=== PATIENT | male | born 1970 | race Two or more races ===

== ENCOUNTER 2020-10-25 13:03 | Emergency (ER) | payer OTHER, SELFPAY ==
--- NOTE | ~2020-10-25 | XR_ITS ---
EXAMINATION: XR LUMBOSACRAL SPINE WITH OBLIQUES CLINICAL INFORMATION: Low back pain following lifting. COMPARISON: [facility] 12/30/2018, chest radiographs 07/03/2016. TECHNIQUE: Lumbar spine is imaged in 5 views: AP, lateral, lateral view coned to lumbosacral junction, and bilateral oblique. FINDINGS: The lumbar vertebral bodies are normal in height and there is normal lumbar lordosis. There is no lumbar vertebral compression, spondylolisthesis, destructive process, or lumbar disc narrowing. Some minor anterior vertebral spurring present at L3-L4. There are degenerative disc changes lower thoracic spine at T11-T12 and T12-L1. The SI joints and visualized sacrum are unremarkable. There is no right lumbar spondylolysis. The left L5 pars is not well visualized. There is moderate stool in the colon and some scattered gaseous distention colon. No bowel wall thickening. XR/XR lumbar spine 4V min IMPRESSION: 1. No lumbar vertebral compression, destructive process, or lumbar disc narrowing. 2. Question left L5 spondylolysis. No spondylolisthesis. 3. Degenerative disc changes T11-T12 and T12-L1.
[2020-10-25 13:08] VITALS: BP 140/86; PULSE 72; RESP 16; TEMP 35.9; O2SAT 100; BMI 34.8
--- NOTE | 2020-10-25 14:40 | ED.BACK ---
HPI - Back Pain/Injury General Chief Complaint: Back Pain/Injury Stated Complaint: BACK INJ PAIN Time Seen by Provider: 10/25/20 14:08 Source: patient Mode of arrival: ambulatory Limitations: no limitations History of Present Illness HPI Narrative: 50-year-old male with a past medical history of back pain, hypertension, hypercholesterolemia, GERD and asthma presenting to the ED with complaints of lower back pain since Wednesday worse today after lifting a couple plastic chairs at home. Reports he has had this pain in the past and is similar although little worse than prior. MD elicited complaint: back pain Pertinent past history: prior back pain Onset (ago): day(s) (Three days worse today) Timing: constant Severity: moderate Similar Symptoms Previously: Yes Quality: aching Location: lumbar spine Exacerbating factors: movement and walking Relieving factors: none Context: while lifting Associated symptoms: denies other symptoms Treatments prior to arrival: other (Patient reports he has tried multiple [id number] medication no symptomatic relief) Work related injury: No Related Data Previous Rx's Medication Instructions Recorded cyclobenzaprine 10 mg PO Q8H #10 tab 10/25/20 lidocaine HCl [Aspercreme 1 appl TOPICAL BID PRN #120 g 10/25/20 (lidocaine HCl)] naproxen 500 mg PO BID PRN #10 tab 10/25/20 oxycodone 5 mg PO BID PRN #10 tab 10/25/20 prednisone 40 mg PO DAILY 5 Days #10 tab 10/25/20 Allergies Allergy/AdvReac Type Severity Reaction Status Date / Time No Known Allergies Allergy Unverified 02/08/20 17:21 [No Known Allergies*] Review of Systems Review of Systems: Constitutional : No trauma, No Weight loss, No Fever, No Chills, ENT/Mouth : No Hearing loss, No Ear Pain, No Nasal Congestion, No Sinus Pain, No Hoarseness, No sore throat, No Rhinorrhea, No Swallowing Difficulty Cardiovascular : No Chest Pain, No SOB Respiratory : No Cough, No Dyspnea Gastrointestinal : No Nausea, No Vomiting, No Diarrhea, No abdominal Pain, No Hematochezia, No Melena Genitourinary : No Dysuria, No Urinary Frequency, No Hematuria, No Urinary or Bowel Incontinence/retention Musculoskeletal : + Back pain, No neck pain, No joint stiffness, No joint swelling Skin : No Skin Lesions, No rash or signs of infection Neuro : No Weakness, No radiation, No Numbness, No Paresthesias, No headache, no loss of bowel or bladder incontinence, no saddle anesthesia, Focal weakness, No radiation Denies history of IV drug usage. Yes all other systems are reviewed and are negative [facility], [facility] Past Medical History Attestation statement: The following information was validated with the patient. Medical History Hypercholesterolemia Hypertension Social History Social History Advance Directives: Yes Advance Directives Information Provided: No Advance Directives on File: No Physical Exam Vital Signs: Vital Signs: Last Vital Signs Temp 96.6 F L 10/25/20 13:08 Pulse 72 10/25/20 13:08 Resp 16 10/25/20 13:08 BP 140/86 H 10/25/20 13:08 Pulse Ox 100 10/25/20 13:08 Body Mass Index 34.8 vital signs have been reviewed as normal and appeared to be correct. Blood pressure normal. Heart rate normal. Respiration rate normal. Temperature normal. Oxygen saturation normal. Appearance: Alert. Oriented X3. No acute distress. Head: Normal external exam. Normocephalic. Atraumatic. No Barrow signs noted. No raccoon eyes noted Eyes: PERRLA. EOMI. Conjunctiva and sclera normal. Eyelids normal. ENT: EAC normal. TM's Normal. Pharynx normal. Uvula midline. Moist mucous membranes. No trismus noted. No drooling noted. No muffled voice noted. Neck: Normal inspection. Neck supple. FROM. No adenopathy. Thyroid Normal. No meningeal signs. No neck mass noted. CVS: Normal heart rate and rhythm. Heart sound normal. No murmurs noted. Pulses normal throughout. Respiratory: No respiratory distress. Painless inspiration. Breath sounds normal. No wheezes/rales/rhonchi noted. Chest nontender. No accessory muscle usage noted or decreased air movement noted. Abdomen: Soft and nontender. Bowel sounds normal in all 4 quadrants. No distention noted. No organomegaly noted. No visible injury noted. Back: No CVA tenderness. Full range of motion noted. No obvious deformities, or edema. Mild para-spinal muscular tenderness from lumbar region to coccyx. Full ROM in back and lower extremities. 5/5 strength hip extension/flexion, abduction, adduction. Mild Lumbar pain with hip flexion against resistance. Straight leg raise test negative on right; Straight leg raise test negative on left; Reflexes normal ankle and knee bilaterally; EHL motor strength normal bilaterally. No rashes/lesion/induration/fluctuance or signs infection noted. Skin: Skin warm and dry. Normal skin color. Normal skin turgor. No rashes/lesions/lacerations noted. Extremities: No lower extremity edema. Extremities exhibit normal range of motion. Extremities nontender. Neuro: Oriented X 3. No motor deficit. No sensory deficit. Reflexes normal. Patient has a normal steady gait. Course Course Course Narrative: Pt c likely muscular pain, but could be herniated disc. Neuro exam shows no deficits. Not c/w AAA/epidural abscess/dissection.No high risk Hx (Incont, fever, immunosupp, recent surgery/LP, coag, signif trauma, wt loss, puls mass, hx/o Ca, TB, or IVDU) to warrant MRI/CT today. Not c/w Pyelo/UTI/kidney stone/spinal fx. Not cauda equina syndrome. DC c meds and f/u. MDM - Back Pain/Injury Medical Records Attestation: I reviewed the patient's medical records. Imaging Data X-ray of lumbar spine: Attestation: I personally reviewed and interpreted this imaging study as follows: Radiologist's impression: FINDINGS: The lumbar vertebral bodies are normal in height and there is normal lumbar lordosis. There is no lumbar vertebral compression, spondylolisthesis, destructive process, or lumbar disc narrowing. Some minor anterior vertebral spurring present at L3-L4. There are degenerative disc changes lower thoracic spine at T11-T12 and T12-L1. The SI joints and visualized sacrum are unremarkable. There is no right lumbar spondylolysis. The left L5 pars is not well visualized. There is moderate stool in the colon and some scattered gaseous distention colon. No bowel wall thickening. XR/XR lumbar spine 4V min IMPRESSION: 1. No lumbar vertebral compression, destructive process, or lumbar disc narrowing. 2. Question left L5 spondylolysis. No spondylolisthesis. 3. Degenerative disc changes T11-T12 and T12-L1. Discharge Plan Discharge Clinical Impression: Spondylolysis of lumbar region, Degenerative disc disease, Constipation Patient Disposition: Home, Self-Care Instructions: Constipation (ED), Back Pain (ED), Degenerative Disc Disease (ED), Lower Back Exercises (ED) Prescriptions: New cyclobenzaprine 10 mg tablet 10 mg PO Q8H Qty: 10 RF: 0 prednisone 20 mg tablet 40 mg PO DAILY 5 Days Qty: 10 RF: 0 naproxen 500 mg tablet 500 mg PO BID PRN (Reason: pain) Qty: 10 RF: 0 oxycodone 5 mg tablet 5 mg PO BID PRN (Reason: pain) Qty: 10 RF: 0 lidocaine HCl [Aspercreme (lidocaine HCl)] 4 % cream 1 appl topical BID PRN (Reason: pain) Qty: 120 RF: 0 Referrals: Physician,Unknown [Primary Care Provider] - 2 days Stand Alone Forms: Work/School Release
[2020-10-25] MEDS: NaPROXEN 500 MG TABLET PO (15:25)
[2020-10-25] MEDS: oxyCODONE HCl Immed Release 5 MG TABLET PO (15:25)
[2020-10-25] MEDS: Cyclobenzaprine HCl 5 MG TABLET PO (15:25)
== END 2020-10-25 15:55 | disposition home or self-care (01) ==
PROVIDERS: Emergency Provider Emergency Medicine Emergency Medical Services
DX: K59.00 Constipation, unspecified (principal); M47.816 Spondylosis without myelopathy or radiculopathy, lumbar region; M51.36 Other intervertebral disc degeneration, lumbar region; I10 Essential (primary) hypertension; E78.00 Pure hypercholesterolemia, unspecified; K21.9 Gastro-esophageal reflux disease without esophagitis; J45.909 Unspecified asthma, uncomplicated
CPT/HCPCS: 72110; 99283

== ENCOUNTER 2020-12-04 10:55 | Outpatient (REF) | payer OTHER, SELFPAY ==
--- NOTE | ~2020-12-04 | XR_ITS ---
EXAMINATION: XR KNEE, LEFT CLINICAL INFORMATION: Left knee pain. COMPARISON: None TECHNIQUE: Four views of the left knee. FINDINGS: Bones and soft tissues are normal. No fracture or joint effusion. Alignment is anatomic. Joint spaces are well maintained. No abnormal soft tissue calcification. XR/XR knee LT 4V IMPRESSION: Unremarkable examination.
== END 2020-12-04 10:56 | disposition home or self-care (01) ==
LOC: HO.XRAY 10:55
PROVIDERS: PCP Registered Nurse Community Health; Visit Provider Registered Nurse Community Health
DX: M25.562 Pain in left knee (principal)
CPT/HCPCS: 73564

== ENCOUNTER 2021-02-18 07:34 | Emergency (ER) | payer OTHER, SELFPAY ==
--- NOTE | ~2021-02-18 | CT_ITS ---
EXAMINATION: CT LEFT LOWER LEG CLINICAL INFORMATION: Pain, tenderness, gastrocnemius pain, concern for tear. COMPARISON: None TECHNIQUE: Axial imaging without contrast. Sagittal and coronal reconstructions. FINDINGS: No evidence of acute tibia or fibular fracture. Articulation at the knee and tibiotalar joint is maintained. Subchondral lucencies in the inferior aspect of the central patella and medial patellar facet, probably degenerative. Mild heterogeneity and intermediate attenuation in the medial aspect of the soleus muscle, could be related in part to streak artifact from the adjacent bone, with underlying muscle abnormality such as interstitial tearing not excluded. No measurable tear is otherwise seen in the medial and lateral gastrocnemius muscles. No gross tear is otherwise identified in the visualized musculature. No significant Vargas's cyst. Limited evaluation the tendons. The Achilles tendon is grossly intact. Remainder of the technologist and tendons appear unremarkable. CT/CT lower leg LT wo con IMPRESSION: 1. Limited evaluation of the muscles on CT. Slight heterogeneity and intermediate attenuation in the medial aspect of the soleus muscle, which could be related to artifact from the adjacent bone versus underlying muscle abnormality such as interstitial tearing. No measurable tear is otherwise identified in the visualized musculature. Further evaluation with MRI can be obtained as clinically warranted. 2. No acute osseous abnormality seen. 3. Degenerative/arthritic changes in the patella, partially imaged/incompletely evaluated,as detailed above.
[2021-02-18 07:53] VITALS: BP 131/90; PULSE 81; RESP 16; TEMP 36.6; O2SAT 96; BMI 34.8
--- NOTE | 2021-02-18 07:58 | ED_ITS ---
HPI - Extremity Injury (Lower) General Chief Complaint: Extremity Injury, Lower Stated Complaint: lt lower leg injury Time Seen by Provider: 02/18/21 07:57 Source: patient and family Mode of arrival: ambulatory Limitations: no limitations History of Present Illness HPI Narrative: 50 y/o male presents to the ER with left lower leg injury that started this morning after he fell. He reports when he was walking down the stairs this morning he missed the last 2 steps. He felt a snap and had immediate pain is his left calf. He was able to partially bear weight but had severe pain. He reports pain with plantar flexsion and dorsiflexion and limited ROM of his ankle due to the pain. MD complaint: leg injury Onset (ago): hour(s) Type of Injury: unknown Place: home Severity: severe Severity scale (1-10): 8 Relieving factors: immobilization and rest Exacerbating factors: weight bearing, movement and palpation Associated symptoms: snap/pop sensation and able to partially bear weight Other symptoms: none Treatments prior to arrival: cold therapy Related Data Previous Rx's Medication Instructions Recorded cyclobenzaprine 10 mg tablet 10 mg PO Q8H #10 tab 10/25/20 lidocaine HCl 4 % topical cream 1 appl TOPICAL BID PRN #120 g 10/25/20 (Aspercreme (lidocaine HCl)) naproxen 500 mg tablet 500 mg PO BID PRN #10 tab 10/25/20 oxycodone 5 mg tablet 5 mg PO BID PRN #10 tab 10/25/20 prednisone 20 mg tablet 40 mg PO DAILY 5 Days #10 tab 10/25/20 oxycodone 5 mg tablet 5 mg PO Q8H PRN #7 tab 02/18/21 Allergies Allergy/AdvReac Type Severity Reaction Status Date / Time No Known Allergies Allergy Unverified 02/08/20 17:21 [No Known Allergies*] Review of Systems Review of Systems: Constitutional: No Fever, No Chills Cardiovascular: No Chest Pain, No SOB Respiratory: No Cough, No Sputum, No Wheezing, No dyspnea Gastrointestinal: No Nausea, No Vomiting, No abdominal Pain Musculoskeletal: No joint pain, + Myalgias Skin: No Skin Lesions, No rash Neuro: No Weakness, No Numbness, No Dizziness, No Headache Psych: No Anxiety/Panic, No Depression Heme/Lymph: No Bruising PMFSH Past Medical History Medical History Hypercholesterolemia Hypertension Social History Social History Alcohol intake: former Patient Tobacco Use Status: Never used Tobacco Use of substances other than those prescribed or required for medical reasons: No Advance Directives: No Advance Directives Information Provided: No Physical Exam Vital Signs: Vital Signs: Last Vital Signs Temp 97.9 F 02/18/21 07:53 Pulse 69 02/18/21 10:15 Resp 14 02/18/21 10:15 BP 140/75 H 02/18/21 10:15 Pulse Ox 97 02/18/21 10:15 Body Mass Index 34.8 Appearance: Alert. Oriented X3. No acute distress. HEENT: normal inspection CVS: Normal heart rate and rhythm. Pulses normal. Respiratory: No respiratory distress. Skin: Skin warm and dry. Normal skin color. Normal skin turgor. No rashes. Extremities: normal inspection of the left leg. significant soft tissue tenderness of the gastrocnemius, no skin changes, no palpable pain, negative saldana test. normal inspection of the left ankle. weak plantar and dorsiflexion of the left foot. NV intact distally. normal left knee inspection and ROM, nontender Neuro: Oriented X 3. No motor deficit. No sensory deficit. unable to assess gait due to pain Course Course Course Narrative: 50 yo male presenting with left calf pain s/p fall. Exam is concerning for possible gastrocnemius tear. Achilles seems to be intact. Will get CT scan to assess the soft tissues. MRI preferred test but not emergently warranted at this time. Reevaluation(s) Reevaluation #1: CT scan showed possible interstial tearing of the medil soleus muscle vs artifact. TT Ortho who recommended walking boot and outpatient follow up. Stable for d/c home with pain control and Ortho follow up. Results and management discussed with patient and son at the bedside. Consultations Consultation #1: ORTHO- Jennifer Marcus PA-C Discharge Plan Discharge Clinical Impression: Pain of left calf Patient Disposition: Home, Self-Care Instructions: Leg Pain (ED) Additional Instructions: Your CT scan today showed a possible tear in the muscle of your left lower leg. Recommend following up with Orthopedics for further evaluation and management. Wear the walking boot and use crutches as needed. Take the prescribed medication as needed for severe pain - do not drive after taking this medication. Rest and elevate your leg whenever possible. If you develop new or worsening symptoms call 911 or come back to the ER for further evaluation. Boss tomograf?a computarizada de hoy mostr? un posible desgarro en el m?sculo de la parte inferior de la pierna izquierda. Recomendar seguimiento con ortopedia para mayor evaluaci?n y manejo. Use la bota para caminar y use muletas seg?n sea necesario. [place] el medicamento recetado seg?n sea necesario para el dolor intenso; no conduzca despu?s de marie hola medicamento. Descanse y eleve la pierna siempre que sea posible. Si presenta s?ntomas nuevos o que empeoran, llame al 911 o regrese a la kevin de emergencias para jennifer evaluaci?n adicional. Prescriptions: New oxycodone 5 mg tablet 5 mg PO Q8H PRN (Reason: pain) Qty: 7 RF: 0 No Action cyclobenzaprine 10 mg tablet 10 mg PO Q8H Qty: 10 RF: 0 prednisone 20 mg tablet 40 mg PO DAILY 5 Days Qty: 10 RF: 0 naproxen 500 mg tablet 500 mg PO BID PRN (Reason: pain) Qty: 10 RF: 0 oxycodone 5 mg tablet 5 mg PO BID PRN (Reason: pain) Qty: 10 RF: 0 lidocaine HCl [Aspercreme (lidocaine HCl)] 4 % cream 1 appl topical BID PRN (Reason: pain) Qty: 120 RF: 0 Referrals: Jennifer Clay PA-C [Physician Manager Of [employer]] - 1 day (concern for gastroc tear) Stand Alone Forms: Work/School Release Interventions: ED Discharge Assessment Last Done: 02/18/21 10:11 Discharge Date/Time: 02/18/21 10:16 Print Language: Bulgarian
[2021-02-18] MEDS: oxyCODONE HCl Immed Release 5 MG TABLET PO (08:11)
[2021-02-18 10:15] VITALS: BP 140/75; PULSE 69; RESP 14; O2SAT 97
== END 2021-02-18 10:16 | disposition home or self-care (01) ==
PROVIDERS: Emergency Provider Emergency Medicine
DX: S89.92XA Unspecified injury of left lower leg, initial encounter (principal); M79.662 Pain in left lower leg; W10.9XXA Fall (on) (from) unspecified stairs and steps, initial encounter; Y93.9 Activity, unspecified; Y92.9 Unspecified place or not applicable; Y99.9 Unspecified external cause status; Z79.899 Other long term (current) drug therapy
CPT/HCPCS: 73700; 99284; 99285

== ENCOUNTER 2021-07-04 18:02 | Emergency (ER) | payer OTHER, SELFPAY ==
[2021-07-04 18:05] VITALS: BP 137/82; PULSE 105; TEMP 36.5; O2SAT 97; BMI 34.8
[2021-07-04 18:22] LABS: MANUAL DIFF FLAG NO
[2021-07-04 18:27] LABS: Basophils Percent Auto 0.4 % (0-2); Eosinophils Absolute Auto 0.1 X10*3/uL (0.0-0.4); Eosinophils Percent Auto 0.9 % (0-4); Hematocrit 40.2 % (42.0-52.0); Hemoglobin 13.8 g/dl (14.0-18.0); Imm Gran Abs Auto 0.01 X10*3/uL (0.00-0.03); Imm Gran Pct Auto 0.2 % (0.0-0.4); Lymphocytes Absolute Auto 1.3 X10*3/uL (1.2-4.9); Lymphocytes Percent Auto 23.3 % (20-40); Mean Corpuscular HGB Conc 34.3 g/dl (31.0-36.0); Mean Corpuscular Hemoglobin 30.5 pg (27.0-33.0); Mean Corpuscular Volume 88.9 fL (80.0-98.0); Monocytes Absolute Auto 0.5 X10*3/uL (0.1-1.2); Monocytes Percent Auto 8.7 % (2-11); Neutrophils Absolute Auto 3.8 x10*3/uL (2.0-8.3); Neutrophils Percent Auto 66.5 % (45-73); Platelet Count 252 X10*3/uL (160-400); Red Blood Count 4.52 X10*6/uL (4.60-5.80); Red Cell Distribution Width 12.3 % (11.0-16.0); White Blood Count 5.6 X10*3/uL (4.8-10.8)
--- NOTE | 2021-07-04 18:41 | PC.NURSE ---
Brother Gary Sheppard- [phone], Sister Sylwia West- [phone]
[2021-07-04 18:45] LABS: Alanine Aminotransferase 17 U/L (0-40); Albumin Level 4.2 g/dL (3.5-5.0); Alkaline Phosphatase 103 U/L (39-117); Anion Gap 12 (12-20); Aspartate Amino Transferase 22 U/L (5-37); Bilirubin Direct 0.4 mg/dL (0.0-0.5); Bilirubin Total 0.9 mg/dL (0.0-1.0); Blood Urea Nitrogen 18 mg/dL (9-16); Calcium 9.3 mg/dL (8.4-10.2); Carbon Dioxide 28 mmol/L (22-29); Chloride 102 mmol/L (96-108); Creatinine Clr Calc Pharmacy 108.6; Estimated Glomerular Filt Rate > 60; Glucose Random 131 mg/dL (60-115); Lipase 27 U/L (8-78); Potassium 4.1 mmol/L (3.3-5.1); Sodium 138 mmol/L (135-145); Total Protein 8.4 g/dL (6.5-8.0)
[2021-07-04 18:48] LABS: Appearance Urine CLEAR; Color Urine YELLOW; Glucose Urine UA NEG (NEG); Leukocyte Esterase Urine NEG (NEG); Nitrite Urine NEG (NEG); Specific Gravity - Urine >= 1.030 (1.005-1.025); Urine Blood NEG (NEG); Urine Ketones NEG (NEG); Urine Protein TRACE MG/DL (NEG-TRACE)
== END 2021-07-04 22:22 | disposition left against medical advice (07) ==
PROVIDERS: Emergency Provider Emergency Medicine
DX: R10.9 Unspecified abdominal pain (principal)
CPT/HCPCS: 36415; 80053; 81003; 82248; 83690; 85025; 99283

== ENCOUNTER 2021-07-05 08:31 | Emergency (ER) | payer OTHER, SELFPAY ==
--- NOTE | ~2021-07-05 | CT_ITS ---
EXAMINATION: CT ABDOMEN AND PELVIS WITH CONTRAST CLINICAL INFORMATION: Mid abdominal pain for 6 days. COMPARISON: CT scan of the abdomen and pelvis dated 08/07/2015. TECHNIQUE: Multidetector CT volumetric acquisition of the abdomen and pelvis was performed after the administration of 85 mL of intravenous Omnipaque 350. The data set was reformatted in the sagittal and coronal planes and reviewed on an independent workstation. This CT examination was performed using dose optimization techniques as appropriate, variously including the following: *Automated exposure control *Adjustment of mA and/or kV according to patient size (this includes techniques or standardized protocols for targeted exams where dose is matched to indication/reason for exam; i.e. extremities or head) *Use of iterative reconstruction technique DLP: 802 mGy-cm. FINDINGS: LOWER CHEST: Mild scattered atelectasis in the lung bases bilaterally. LIVER, GALLBLADDER, BILIARY TREE: Liver normal size and attenuation. No focal cystic or solid mass or intra-or extrahepatic ductal dilatation. Hepatic and portal veins patent. Gallbladder partially distended and within normal limits. PANCREAS: Normal. No ductal dilatation, mass, or surrounding stranding. SPLEEN: Normal size and appearance. Splenic vein patent. ADRENAL GLANDS AND KIDNEYS: Adrenal glands normal. Kidneys bilaterally symmetric in size and function. No focal mass, hydronephrosis, nephrolithiasis or perinephric stranding. URETERS AND BLADDER: Ureters decompressed and within normal limits. Bladder partially distended and within normal limits. PELVIC ORGANS: Unremarkable. GASTROINTESTINAL TRACT: There is abnormal diffuse circumferential bowel wall edema and mucosal hyperenhancement seen involving a long segment of the mid and distal and terminal ileum down to the ileocecal valve with mild surrounding mesenteric edema and stranding. Findings are new compared to the prior study and is suspicious for ileitis. The remainder of the small bowel loops are decompressed and unremarkable. No evidence of pneumatosis intestinalis or bowel obstruction/perforation is seen. There are several small right lower quadrant mesenteric lymph nodes, measuring up to 0.9 cm in short axis, likely reactive. Colon is decompressed and unremarkable. Appendix in right lower quadrant normal. ABDOMINAL WALL: There is a tiny fat-containing umbilical hernia. LYMPHOVASCULAR STRUCTURES: Abdominal aorta normal in caliber. Aorta and all mesenteric vessels are patent and enhance normally.. No significant atherosclerotic vascular calcifications. No periaortic collections. No abdominal or pelvic adenopathy or free fluid collection. BONES: Moderate vertebral spondylosis seen in the lower thoracic spine. Mild vertebral spurring seen throughout the lumbar spine. CT/CT abdomen pelvis w con IMPRESSION: Long segment of mid and distal ileitis is seen. This may be due to infectious causes or inflammatory causes such as Crohn's disease. Close clinical correlation is requested.
[2021-07-05 08:40] VITALS: BP 143/107; PULSE 116; RESP 19; TEMP 36.6; O2SAT 98; BMI 34.2
--- NOTE | 2021-07-05 10:23 | ED_ITS ---
HPI - Abdominal Pain General Chief Complaint: Abdominal Pain Stated Complaint: abd pain Time Seen by Provider: 07/05/21 10:23 Source: patient Mode of arrival: ambulatory Limitations: no limitations History of Present Illness HPI narrative: Patient is a 50 year old male presenting to the emergency department today with abdominal pain. Patient states that for the last few days, he has had a burning type pain throughout his entire abdomen. Paitent states that he has a history of acid reflux but he is not taking any medication for it. Patient states that he tried to be seen yesterday but waited too long and left. Patient denies any dizziness, lightheadedness, nausea, vomiting, fever, chills, blurry vision, double vision, loss of vision, chest pain, difficulty breathing, shortness of breath, back pain, night sweats, pain with urination, increased urinary frequency, increased urinary urgency, blood in his urine or stool, syncope or a near syncopal episode, recent trauma or falls, bowel incontinence, bladder incontinence, bowel retention, bladder retention, or any other complaints at this time. MD elicited complaint: abdominal pain Pertinent past history: none Onset (ago): day(s) Pain Consistency: intermittent Location: diffuse Severity: mild Quality: dull Radiation: none Exacerbating factors: nothing Relieving factors: nothing Associated symptoms: denies other symptoms Related Data Previous Rx's Medication Instructions Recorded cyclobenzaprine 10 mg tablet 10 mg PO Q8H #10 tab 10/25/20 lidocaine HCl 4 % topical cream 1 appl TOPICAL BID PRN #120 g 10/25/20 (Aspercreme (lidocaine HCl)) naproxen 500 mg tablet 500 mg PO BID PRN #10 tab 10/25/20 oxycodone 5 mg tablet 5 mg PO BID PRN #10 tab 10/25/20 prednisone 20 mg tablet 40 mg PO DAILY 5 Days #10 tab 10/25/20 oxycodone 5 mg tablet 5 mg PO Q8H PRN #7 tab 02/18/21 levofloxacin 750 mg tablet 750 mg PO DAILY 7 Days #7 tab 07/05/21 metronidazole 500 mg tablet 500 mg PO Q8H 7 Days #21 tab 07/05/21 Allergies Allergy/AdvReac Type Severity Reaction Status Date / Time No Known Allergies Allergy Unverified 02/08/20 17:21 [No Known Allergies*] Review of Systems Constitutional: Reports no additional constitutional complaints, Denies chills, Denies fever(s) and Denies night sweats Eyes: Reports no additional eye complaints, Denies blurry vision, Denies change in vision, Denies diplopia, Denies eye discharge, Denies loss of vision and Denies eye pain Denies dizziness Cardiovascular: Reports no additional cardiovascular complaints, Denies chest pain, Denies lightheadedness, Denies Loss of Consciousness and Denies dyspnea Respiratory: Reports no additional respiratory complaints and Denies dyspnea Gastrointestinal: Reports no additional gastrointestinal complaints, Reports abdominal pain, Denies melena, Denies hematochezia, Denies change in bowel habits and Denies change in stool character Genitourinary: Reports no additional male genitourinary complaints, Denies hematuria, Denies oliguria, Denies difficulty urinating, Denies dysuria, Denies urinary frequency, Denies urinary hesitancy, Denies urinary incontinence and Denies urinary urgency Musculoskeletal: Reports no additional musculoskeletal complaints, Denies numbness and Denies tingling Denies dizziness, Denies loss of vision, Denies numbness and Denies tingling Psychiatric: Reports no additional psychiatric complaints Endocrine: Reports no additional endocrine complaints Hematologic/Lymphatic: Reports no additional hematologic/lymphatic complaints Allergic/Immunologic: Reports no additional allergic/immunologic complaints Physical Exam Vital Signs: Vital Signs: Last Vital Signs Temp 98.1 F 07/05/21 15:24 Pulse 87 07/05/21 15:24 Resp 18 07/05/21 15:24 BP 135/86 07/05/21 15:24 Pulse Ox 98 07/05/21 15:24 BMI result Body Mass Index 34.2 Const: General: cooperative, no acute distress, alert and awake Nutritional Appearance: well nourished Orientation/consciousness: patient oriented x3 Limitations: no limitations HENMT: Head: Yes normal to inspection and Yes atraumatic Ears: hearing grossly normal bilaterally and external ears normal General nose exam: Normal external nose present, no nasal discharge noted and no epistaxis Face and sinus: Yes normal facial exam, No abrasion and No laceration Mouth: Normal oral and palatal mucosa present, no drooling and no muffled voice Eyes: General: appearance normal, both eyes and all related structures Periorbital: periorbital findings normal Eyelids: Yes eyelids normal Conjunctivae: conjunctivae normal Pupils: Equal, round and reactive pupils present EOM: EOMs intact bilaterally Neck: Neck: Yes normal visual inspection, Yes full ROM and Yes no l ymphadenopathy Chest: Chest palpation & inspection: normal inspection of the chest Resp: Effort & Inspection: normal respiratory effort and able to speak in complete sentences GI: Inspection: Yes normal to inspection Palpation (GI): Soft to palpation and Tenderness to palpation present (GI) other (diffuse abdominal pain); Negative for Guillermo's sign negative and with no rebound tenderness Neuro: General: patient oriented x3 and moves all extremities Cranial nerves: Yes Equal, round and reactive pupils present Cognition (Neuro): normal cognition Motor exam (neuro): 5/5 motor strength present throughout Sensory Exam: Normal double simultaneous stimulation for sensation Coordination: [id number] test normal Extrem: General: Yes normal to inspection, Yes full ROM and Yes capillary refill normal Psych: Appearance: grossly normal Mental Status: mental status grossly normal Affect: normal affect Attitude: cooperative Thought process: Normal thought process present Thought content: Normal thought content present Insight: Good insight present (Psych) MDM - Abdominal Pain MDM Narrative Medical decision making narrative: Patient is a 50 year old male presenting to the emergency department today with abdominal pain. Patient's physical exam showed diffuse abdominal pain but was otherwise unremarkable. Patient's blood work was unremarkable. Patient's CT of the abdomen and pelvis showed an Ileitis. I explained my physical exam findings as well as all test results to the patient. I answered all questions asked by the patient. I stressed the importance of the patient taking his antibiotic as prescribed. I stressed the importance of the patient following up with his primary care provider and a GI Specialist. I stressed the importance of the patient returning to the emergency department immediately if his symptoms were to worsen or if he were to develop any dizziness, shortness of breath, difficulty breathing, chest pain, blurry vision, loss of vision, nausea, vomiting, abdominal pain, fever, chills, back pain, or any other complaints. Patient verbalized agreement and understanding with this treatment plan and discharge. Differential Diagnosis Differential diagnosis: Likely abdominal pain, acute appendicitis, diverticulitis and gastroenteritis Medical Records Attestation: I reviewed the patient's medical records. Lab Data Attestation: I reviewed the patient's lab results. Result diagrams: 07/05/21 11:20 07/05/21 11:20 Labs: Lab Results 07/05/21 07/05/21 Range/Units 11:20 11:20 WBC 5.1 (4.8-10.8) X10*3/uL RBC 4.51 L (4.60-5.80) X10*6/uL Hgb 13.7 L (14.0-18.0) g/dl Hct 40.2 L (42.0-52.0) % MCV 89.1 (80.0-98.0) fL MCH 30.4 (27.0-33.0) pg MCHC 34.1 (31.0-36.0) g/dl RDW 12.1 (11.0-16.0) % Plt Count 235 (160-400) X10*3/uL MPV 9.9 (9.4-12.4) fL Immature Gran % (Auto) 0.4 (0.0-0.4) % Neut % (Auto) 66.2 (45-73) % Lymph % (Auto) 22.1 (20-40) % [place] % (Auto) 10.1 (2-11) % Eos % (Auto) 0.8 (0-4) % Baso % (Auto) 0.4 (0-2) % Lymph # (Auto) 1.1 L (1.2-4.9) X10*3/uL [place] # (Auto) 0.5 (0.1-1.2) X10*3/uL Eos # (Auto) 0.0 (0.0-0.4) X10*3/uL Baso # (Auto) 0.0 (0.0-0.2) X10*3/uL Abs Immat Gran (auto) 0.02 (0.00-0.03) X10*3/uL Absolute Neuts (auto) 3.4 (2.0-8.3) x10*3/uL Absolute Nucleated RBC 0.000 (0.0-0.012) X10*3/uL Nucleated RBC % (auto) 0.0 (0.0-0.2) /100WBC Sodium 137 (135-145) mmol/L Potassium 3.7 (3.3-5.1) mmol/L Chloride 102 (96-108) mmol/L Carbon Dioxide 28 (22-29) mmol/L Anion Gap 11 L (12-20) BUN 15 (9-16) mg/dL Creatinine 0.84 (0.5-1.4) mg/dL Estim Creat Clear Calc 131.8 Estimated GFR > 60 Fasting Glucose 111 H (60-99) mg/dL Calcium 9.1 (8.4-10.2) mg/dL Magnesium 2.1 (1.6-2.6) mg/dL Total Bilirubin 1.3 H (0.0-1.0) mg/dL AST 21 (5-37) U/L ALT 19 (0-40) U/L Alkaline Phosphatase 94 (39-117) U/L Total Protein 8.1 H (6.5-8.0) g/dL Albumin 4.0 (3.5-5.0) g/dL Lipase 17 (8-78) U/L Imaging Data CT scan - abdomen: Attestation: I personally reviewed and interpreted this imaging study as follows: Radiologist's impression: EXAMINATION: CT ABDOMEN AND PELVIS WITH CONTRAST CLINICAL INFORMATION: Mid abdominal pain for 6 days. COMPARISON: CT scan of the abdomen and pelvis dated 08/07/2015. TECHNIQUE: Multidetector CT volumetric acquisition of the abdomen and pelvis was performed after the administration of 85 mL of intravenous Omnipaque 350. The data set was reformatted in the sagittal and coronal planes and reviewed on an independent workstation. This CT examination was performed using dose optimization techniques as appropriate, variously including the following: *Automated exposure control *Adjustment of mA and/or kV according to patient size (this includes techniques or standardized protocols for targeted exams where dose is matched to indication/reason for exam; i.e. extremities or head) *Use of iterative reconstruction technique DLP: 802 mGy-cm. FINDINGS: LOWER CHEST: Mild scattered atelectasis in the lung bases bilaterally. LIVER, GALLBLADDER, BILIARY TREE: Liver normal size and attenuation. No focal cystic or solid mass or intra-or extrahepatic ductal dilatation. Hepatic and portal veins patent. Gallbladder partially distended and within normal limits. PANCREAS: Normal. No ductal dilatation, mass, or surrounding stranding. SPLEEN: Normal size and appearance. Splenic vein patent. ADRENAL GLANDS AND KIDNEYS: Adrenal glands normal. Kidneys bilaterally symmetric in size and function. No focal mass, hydronephrosis, nephrolithiasis or perinephric stranding. URETERS AND BLADDER: Ureters decompressed and within normal limits. Bladder partially distended and within normal limits. PELVIC ORGANS: Unremarkable. GASTROINTESTINAL TRACT: There is abnormal diffuse circumferential bowel wall edema and mucosal hyperenhancement seen involving a long segment of the mid and distal and terminal ileum down to the ileocecal valve with mild surrounding mesenteric edema and stranding. Findings are new compared to the prior study and is suspicious for ileitis. The remainder of the small bowel loops are decompressed and unremarkable. No evidence of pneumatosis intestinalis or bowel obstruction/perforation is seen. There are several small right lower quadrant mesenteric lymph nodes, measuring up to 0.9 cm in short axis, likely reactive. Colon is decompressed and unremarkable. Appendix in right lower quadrant normal. ABDOMINAL WALL: There is a tiny fat-containing umbilical hernia. LYMPHOVASCULAR STRUCTURES: Abdominal aorta normal in caliber. Aorta and all mesenteric vessels are patent and enhance normally.. No significant atherosclerotic vascular calcifications. No periaortic collections. No abdominal or pelvic adenopathy or free fluid collection. BONES: Moderate vertebral spondylosis seen in the lower thoracic spine. Mild vertebral spurring seen throughout the lumbar spine. CT/CT abdomen pelvis w con IMPRESSION: Long segment of mid and distal ileitis is seen. This may be due to infectious causes or inflammatory causes such as Crohn's disease. Close clinical correlation is requested. Dictated By: Loly Rivera MD Signed By: Electronically signed by Loly Rivera MD 07/05/21 Discharge Plan Discharge Clinical Impression: Ileitis Patient Disposition: Home, Self-Care Instructions: Colitis (ED) Additional Instructions: Follow up with your primary care provider. Return to the emergency department immediately if your symptoms worsen or if you develop any dizziness, shortness of breath, difficulty breathing, chest pain, blurry vision, loss of vision, nausea, vomiting, abdominal pain, fever, chills, back pain, or any other complaints. Prescriptions: New metronidazole 500 mg tablet 500 mg PO Q8H 7 Days Qty: 21 0RF levofloxacin 750 mg tablet 750 mg PO DAILY 7 Days Qty: 7 0RF No Action cyclobenzaprine 10 mg tablet 10 mg PO Q8H Qty: 10 0RF prednisone 20 mg tablet 40 mg PO DAILY 5 Days Qty: 10 0RF naproxen 500 mg tablet 500 mg PO BID PRN (Reason: pain) Qty: 10 0RF oxycodone 5 mg tablet 5 mg PO BID PRN (Reason: pain) Qty: 10 0RF lidocaine HCl [Aspercreme (lidocaine HCl)] 4 % cream 1 appl topical BID PRN (Reason: pain) Qty: 120 0RF oxycodone 5 mg tablet 5 mg PO Q8H PRN (Reason: pain) Qty: 7 0RF Referrals: Kelvin Victor MD [Physician] - 2 days Center,[facility] [Primary Care Provider] - 2 days Stand Alone Forms: Work/School Release Interventions: ED Discharge Assessment Last Done: 07/05/21 15:19 Discharge Date/Time: 07/05/21 15:26 Print Language: Macedonian [facility] Past Medical History Attestation statement: The following information was validated with the patient. Source: old records reviewed Medical History Gastritis Hypercholesterolemia Hypertension Social History Social History Alcohol intake: former Patient Tobacco Use Status: Never used Tobacco Advance Directives: No Advance Directives Information Provided: Yes
[2021-07-05 10:35] VITALS: BP 117/78; PULSE 92; RESP 18; O2SAT 97
[2021-07-05 11:24] LABS: MANUAL DIFF FLAG NO
[2021-07-05 11:26] LABS: Basophils Percent Auto 0.4 % (0-2); Eosinophils Percent Auto 0.8 % (0-4); Hematocrit 40.2 % (42.0-52.0); Hemoglobin 13.7 g/dl (14.0-18.0); Imm Gran Abs Auto 0.02 X10*3/uL (0.00-0.03); Imm Gran Pct Auto 0.4 % (0.0-0.4); Lymphocytes Absolute Auto 1.1 X10*3/uL (1.2-4.9); Lymphocytes Percent Auto 22.1 % (20-40); Mean Corpuscular HGB Conc 34.1 g/dl (31.0-36.0); Mean Corpuscular Hemoglobin 30.4 pg (27.0-33.0); Mean Corpuscular Volume 89.1 fL (80.0-98.0); Mean Platelet Volume 9.9 fL (9.4-12.4); Monocytes Absolute Auto 0.5 X10*3/uL (0.1-1.2); Monocytes Percent Auto 10.1 % (2-11); Neutrophils Absolute Auto 3.4 x10*3/uL (2.0-8.3); Neutrophils Percent Auto 66.2 % (45-73); Platelet Count 235 X10*3/uL (160-400); Red Blood Count 4.51 X10*6/uL (4.60-5.80); Red Cell Distribution Width 12.1 % (11.0-16.0); White Blood Count 5.1 X10*3/uL (4.8-10.8)
[2021-07-05] MEDS: 0.9 % Sodium Chloride 1,000 ML 999 ML IVCONT (11:31)
[2021-07-05] MEDS: Lidocaine HCl Viscous 2 % 15 ML SOLUTION MUCOUS MEM (11:32)
[2021-07-05] MEDS: Magnesium Hydrox/Alum Hydrox 30 ML ORAL.SUSP PO (11:32)
[2021-07-05] MEDS: Pantoprazole Sodium 40 MG/10 ML VIAL IVPUSH (11:32)
[2021-07-05 11:42] LABS: Alanine Aminotransferase 19 U/L (0-40); Alkaline Phosphatase 94 U/L (39-117); Anion Gap 11 (12-20); Aspartate Amino Transferase 21 U/L (5-37); Bilirubin Total 1.3 mg/dL (0.0-1.0); Blood Urea Nitrogen 15 mg/dL (9-16); Calcium 9.1 mg/dL (8.4-10.2); Carbon Dioxide 28 mmol/L (22-29); Chloride 102 mmol/L (96-108); Creatinine Clr Calc Pharmacy 131.8; Estimated Glomerular Filt Rate > 60; Glucose Fasting 111 mg/dL (60-99); Lipase 17 U/L (8-78); Magnesium 2.1 mg/dL (1.6-2.6); Potassium 3.7 mmol/L (3.3-5.1); Sodium 137 mmol/L (135-145); Total Protein 8.1 g/dL (6.5-8.0)
[2021-07-05] MEDS: iohexoL 350 MG/ML 100 ML INFUS..BTL 85 ML IV (12:49)
[2021-07-05 15:24] VITALS: BP 135/86; PULSE 87; RESP 18; TEMP 36.7; O2SAT 98
--- NOTE | 2021-07-05 15:25 | PC.NURSE ---
Pt alert and oriented x4, calm and cooperative. Pt denies pain, denies N/V/D at this time. IV removed, vitals stable. Pt ambulated out to private car without issues, steady on his feet. Educated on discharge and stated an understanding.
== END 2021-07-05 15:26 | disposition home or self-care (01) ==
PROVIDERS: Physician Assistant Medical; Emergency Provider Emergency Medicine Emergency Medical Services
DX: K52.9 Noninfective gastroenteritis and colitis, unspecified (principal); R10.9 Unspecified abdominal pain; K21.9 Gastro-esophageal reflux disease without esophagitis; I10 Essential (primary) hypertension; E78.00 Pure hypercholesterolemia, unspecified
CPT/HCPCS: 36415; 74177; 80053; 83690; 83735; 85025; 96361; 96374; 99283; 99284; Q9967

== ENCOUNTER 2021-11-06 21:20 | Emergency (ER) | payer OTHER, SELFPAY ==
--- NOTE | ~2021-11-06 | XR_ITS ---
EXAMINATION: XR CHEST CLINICAL INFORMATION: Cough COMPARISON: 07/03/2016 TECHNIQUE: Frontal view of the chest was obtained. FINDINGS: Normal symmetric lung volumes. No parenchymal consolidation. No pleural effusion. No pneumothorax. Cardiomediastinal silhouette and pulmonary vascularity are within normal limits. No acute osseous abnormalities. XR/XR chest 1V IMPRESSION: No acute findings
[2021-11-06 21:26] VITALS: BP 145/97; PULSE 103; RESP 18; TEMP 37.2; O2SAT 98; BMI 34.2
[2021-11-06 22:04] LABS: Influenza A Negative (Negative)
[2021-11-06 22:05] LABS: COVID-19 Test Negative (Negative); IDNOW Serial# 16C4AD1C; Influenza B2 Negative (Negative)
--- NOTE | 2021-11-06 22:15 | ED_ITS ---
HPI - General Adult General Chief complaint: Headache Stated complaint: lower back pain, sore throat,fever Time Seen by Provider: 11/06/21 22:15 Source: patient Mode of arrival: ambulatory Limitations: no limitations History of Present Illness HPI narrative: Patient been having nasal congestion body aches headache cough for last 3 days other family member also sick COVID test done at home was negative no fever no chills no shortness of breath patient also complaining of pain in the lumbar area when he coughs. No leg weakness no urine symptoms no abdominal pain patient does have a history of asthma not using any inhalers lately Related Data Previous Rx's Medication Instructions Recorded cyclobenzaprine 10 mg tablet 10 mg PO Q8H Muscle spasm #10 tabs 10/25/20 lidocaine HCl 4 % topical cream 1 appl topical BID PRN pain #120 10/25/20 (Aspercreme (lidocaine HCl)) grams naproxen 500 mg tablet 500 mg PO BID PRN pain #10 tabs 10/25/20 oxycodone 5 mg tablet 5 mg PO BID PRN pain #10 tabs 10/25/20 prednisone 20 mg tablet 40 mg PO DAILY rash 5 days #10 tabs 10/25/20 oxycodone 5 mg tablet 5 mg PO Q8H PRN pain #7 tabs 02/18/21 levofloxacin 750 mg tablet 750 mg PO DAILY 7 days #7 tabs 07/05/21 metronidazole 500 mg tablet 500 mg PO Q8H 7 days #21 tabs 07/05/21 albuterol sulfate 90 mcg/actuation 2 puff inhalation Q4-6H PRN 11/06/21 aerosol inhaler (ProAir HFA) Wheezing #8.5 grams codeine 10 mg-guaifenesin 100 mg/5 10 ml PO Q6H PRN cough #237 mL 11/06/21 mL oral liquid prednisone 20 mg tablet 40 mg PO DAILY #10 tabs 11/06/21 Allergies Allergy/AdvReac Type Severity Reaction Status Date / Time No Known Allergies Allergy Verified 11/06/21 21:26 [No Known Allergies*] Review of Systems Review of Systems: Yes all other systems are reviewed and are negative PMFSH Past Medical History Medical History Gastritis Social History Social History Alcohol intake: former Patient Tobacco Use Status: Never used Tobacco Advance Directives: No Advance Directives Information Provided: No Physical Exam ED Vital Signs: Vital Signs - 24 hr 11/06/21 21:26 Temperature 99.0 F Pulse Rate 103 H Respiratory Rate 18 Blood Pressure 145/97 H Pulse Oximetry 98 Oxygen Delivery Method Room Air BMI result Body Mass Index 34.2 Appearance: Alert. Oriented X3. No acute distress. Eyes: No pallor or icterus ENT: Pharynx normal. Oral Mucosa moist, clear rhinorrhea no sinus tenderness Neck: Normal inspection. Neck supple. CVS: Normal heart rate and rhythm. Pulses normal. Respiratory: No respiratory distress. Bilateral wheezing no crackles Abdomen: Soft and nontender. Bowel sounds are present, no mass palpable, no CVA tenderness Skin: Skin warm and dry. Normal skin color. Normal skin turgor. Extremities: No lower extremity edema. No calf tenderness Neuro: Oriented X 3. No motor deficit. No sensory deficit. Medical Decision Making MDM Narrative Medical decision making narrative: Patient PCR negative for COVID flu and RSV likely viral bronchitis discharge patient home on inhaler prednisone and cough syrup Lab Data Lab results reviewed: Yes I reviewed the patient's lab results. Labs: Lab Results 11/06/21 11/06/21 11/06/21 Range/Units 21:27 21:27 22:38 COVID-19 (JUANA) Negative (Negative) COVID-19 Clin Com See Note Influenza Type A (TALITA) Negative (Negative) Influenza Type A (PCR) NEGATIVE (Negative) Influenza Type B (TALITA) Negative (Negative) Influenza Type B (PCR) NEGATIVE (Negative) Influenza A & B Note See Note RSV RNA Qual (PCR) NEGATIVE (Negative) SARS-CoV-2 RNA (RT-PCR) NEGATIVE (Negative) Discharge Plan Discharge Clinical Impression: Acute bronchitis Patient Disposition: Home, Self-Care Instructions: Acute Bronchitis (ED) Additional Instructions: Use inhaler as advised Prednisone as prescribed Cough syrup as prescribed Prescriptions: New prednisone 20 mg tablet 40 mg PO DAILY Qty: 10 0RF codeine-guaifenesin 10-100 mg/5 mL liquid 10 ml PO Q6H PRN (Reason: cough) Qty: 237 0RF albuterol sulfate [ProAir HFA] 90 mcg/actuation HFA aerosol inhaler 2 puff inhalation Q4-6H PRN (Reason: Wheezing) Qty: 8.5 0RF No Action cyclobenzaprine 10 mg tablet 10 mg PO Q8H Qty: 10 0RF prednisone 20 mg tablet 40 mg PO DAILY 5 Days Qty: 10 0RF naproxen 500 mg tablet 500 mg PO BID PRN (Reason: pain) Qty: 10 0RF oxycodone 5 mg tablet 5 mg PO BID PRN (Reason: pain) Qty: 10 0RF lidocaine HCl [Aspercreme (lidocaine HCl)] 4 % cream 1 appl topical BID PRN (Reason: pain) Qty: 120 0RF oxycodone 5 mg tablet 5 mg PO Q8H PRN (Reason: pain) Qty: 7 0RF metronidazole 500 mg tablet 500 mg PO Q8H 7 Days Qty: 21 0RF levofloxacin 750 mg tablet 750 mg PO DAILY 7 Days Qty: 7 0RF Stand Alone Forms: Work/School Release Interventions: ED Discharge Assessment Last Done: 11/06/21 23:48 Discharge Date/Time: 11/06/21 23:48 Print Language: Norwegian
[2021-11-06] MEDS: guaiFEN/Codeine SF 200/20/10ML 10 ML LIQUID PO (23:01)
[2021-11-06] MEDS: predniSONE 20 MG TABLET 40 MG PO (23:01)
[2021-11-06 23:29] LABS: Influenza A PCR NEGATIVE (Negative); Influenza B PCR NEGATIVE (Negative); Resp Syncy Virus RNA Qual PCR NEGATIVE (Negative); SARS COV2 PCR INHOUSE NEGATIVE (Negative)
== END 2021-11-06 23:48 | disposition home or self-care (01) ==
PROVIDERS: Emergency Provider Internal Medicine
DX: J20.9 Acute bronchitis, unspecified (principal); M54.50 Low back pain, unspecified; Z20.822 Contact with and (suspected) exposure to COVID-19; R50.9 Fever, unspecified
CPT/HCPCS: 0241U; 71045; 87502; 87635; 99282; 99283

== ENCOUNTER 2022-07-01 08:41 | Emergency (ER) | payer OTHER, SELFPAY ==
--- NOTE | ~2022-07-01 | CT_ITS ---
EXAMINATION: CT ABDOMEN AND PELVIS WITH CONTRAST CLINICAL INFORMATION: Upper abdominal pain COMPARISON: 07/05/2021 TECHNIQUE: Multidetector volumetric images were obtained from the superior aspect of the liver through the pubic symphysis following administration 85 mL of Omnipaque 350 intravenous contrast. Sagittal and coronal reformatted images were obtained on the technologist's workstation. Oral contrast: No This CT examination was performed using dose optimization techniques as appropriate, variously including the following: *Automated exposure control *Adjustment of mA and/or kV according to patient size (this includes techniques or standardized protocols for targeted exams where dose is matched to indication/reason for exam; i.e. extremities or head) *Use of iterative reconstruction technique DLP: 860 mGy-cm FINDINGS: LUNG BASES: Minor dependent density left base. LIVER, GALLBLADDER, AND BILIARY TREE: Prominent liver. Moderate steatosis. No focal hepatic lesion. No intrahepatic biliary dilatation. Mild perihepatic ascites. . The gallbladder is unremarkable with no evidence of radiopaque gallstones, gallbladder wall thickening, or obvious pericholecystic inflammatory changes. PANCREAS: Unremarkable. SPLEEN: Unremarkable. ADRENAL GLANDS: Unremarkable. KIDNEYS AND URETERS: The kidneys are normal in size, shape, and attenuation. No hydronephrosis, hydroureter, or calculi seen. No perinephric stranding. BLADDER: Unremarkable. GASTROINTESTINAL TRACT: Abnormal. Jejunal loops are indurated and thick-walled with stranding surrounding mesenteric edema in a pattern suspicious for enteritis. This could be on an infectious or inflammatory process. Any history of Crohn's disease or inflammatory bowel disease? No evidence for pneumoperitoneum. Colon is intact. There is no right or left lower quadrant inflammatory change. There is mild ascites in the upper abdomen and moderate ascites extending into the pelvis. ABDOMINAL WALL: No significant hernia is appreciated. LYMPH NODES: Normal. VASCULAR: Unremarkable. PELVIC VISCERA: Prosthetic calcifications noted. Prostate normal size. Seminal vesicles normal. Perirectal fat planes unremarkable. OSSEOUS STRUCTURES: No fracture or destructive process. CT/CT abdomen pelvis w IV con IMPRESSION: Abnormal exam. Jejunal inflammatory change possibly related to inflammatory bowel disease.
[2022-07-01 08:42] VITALS: BP 137/90; PULSE 99; RESP 18; TEMP 35.9; O2SAT 98; BMI 34.7
--- NOTE | 2022-07-01 09:03 | ED.ABDPAIN ---
HPI - Abdominal Pain General Chief Complaint: Abdominal Pain Stated Complaint: abd pain Time Seen by Provider: 07/01/22 08:57 Source: patient Mode of arrival: ambulatory Limitations: no limitations History of Present Illness HPI narrative: This is a 51 years old male presented to the emergency department with chief complaint of upper abdominal pain since 7 pm last night he also complaining nausea vomiting, denies any fever and diarrhea MD elicited complaint: abdominal pain Pertinent past history: none Onset (ago): day(s) (1) Pain Consistency: constant Location: other (upper) Severity: moderate Quality: aching Radiation: none Migration to: no migration Exacerbating factors: nothing Relieving factors: nothing Associated symptoms: nausea and vomiting Related Data Previous Rx's Medication Instructions Recorded cyclobenzaprine 10 mg tablet 10 mg PO Q8H Muscle spasm #10 tabs 10/25/20 lidocaine HCl 4 % topical cream 1 appl topical BID PRN pain #120 10/25/20 (Aspercreme (lidocaine HCl)) grams naproxen 500 mg tablet 500 mg PO BID PRN pain #10 tabs 10/25/20 oxycodone 5 mg tablet 5 mg PO BID PRN pain #10 tabs 10/25/20 prednisone 20 mg tablet 40 mg PO DAILY rash 5 days #10 tabs 10/25/20 oxycodone 5 mg tablet 5 mg PO Q8H PRN pain #7 tabs 02/18/21 levofloxacin 750 mg tablet 750 mg PO DAILY 7 days #7 tabs 07/05/21 metronidazole 500 mg tablet 500 mg PO Q8H 7 days #21 tabs 07/05/21 albuterol sulfate 90 mcg/actuation 2 puff inhalation Q4-6H PRN 11/06/21 aerosol inhaler (ProAir HFA) Wheezing #8.5 grams codeine 10 mg-guaifenesin 100 mg/5 10 ml PO Q6H PRN cough #237 mL 11/06/21 mL oral liquid prednisone 20 mg tablet 40 mg PO DAILY #10 tabs 11/06/21 omeprazole 20 mg capsule,delayed 20 mg PO DAILY #20 caps 07/01/22 release Allergies Allergy/AdvReac Type Severity Reaction Status Date / Time No Known Allergies Allergy Verified 11/06/21 21:26 [No Known Allergies*] Review of Systems Review of Systems Yes all other systems are reviewed and are negative Constitutional: Reports no additional constitutional complaints Cardiovascular: Reports no additional cardiovascular complaints Reports system reviewed and no additional complaints, except as documented [facility] Past Medical History [facility] Narrative: htn Medical History Gastritis Hypercholesterolemia Hypertension Social History Social History Alcohol intake: former Patient Tobacco Use Status: Never used Tobacco Smoked in Last 30 Days: No Use of substances other than those prescribed or required for medical reasons: No Advance Directives: No Physical Exam ED Vital Signs: Vital Signs - 24 hr 07/01/22 08:42 07/01/22 09:13 07/01/22 12:50 Temperature 96.6 F L 97.4 F 97.9 F Pulse Rate 99 90 66 Respiratory Rate 18 20 14 Blood Pressure 137/90 H 124/79 109/82 Pulse Oximetry 98 96 96 Oxygen Delivery Method Room Air Room Air Room Air BMI result Body Mass Index 34.7 Const General: cooperative and no acute distress Nutritional Appearance: average body habitus Orientation/consciousness: patient oriented x3 HENMT Other: wnl General nose exam: Normal external nose present Face and sinus: Yes normal facial exam Neck Other: supple Chest Chest palpation & inspection: normal inspection of the chest Resp Effort & Inspection: normal respiratory effort Auscultation: clear to auscultation bilaterally Cardio Rate: regular rate Rhythm: regular rhythm GI Inspection: Yes normal to inspection Palpation (GI): Soft to palpation and Tenderness to palpation present (GI) (upper abdomen) Skin General skin exam: no rashes or lesions noted Neuro General: patient oriented x3 Course Reevaluation(s) Reevaluation #1: RE-EXAMINED THE PATIENT IS DOING MUCH BETTER, NO ABDOMINAL PAIN CT SCAN SHOWS JEJUNAL INFLAMMATION, AT THIS TIME THE PATIENT THE IS READY FOR DISCHARGE Time: 14:04 Medical Decision Making Medical Decision Making [facility] Narrative: Presented with abdominal pain we will get labs IV fluids will do CT Differential Diagnosis Differential Diagnoses: The differential diagnosis associated with the presentation includes diverticolitis/colitis/pancreatitis Admission/Observation Consideration of admission/observation: Escalation of care including admission/observation considered Lab Data [facility] Lab Attestation statement: I reviewed the patient's lab results. 07/01/22 09:08 07/01/22 09:08 Labs: Lab Results 07/01/22 07/01/22 Range/Units 09:08 09:08 WBC 8.5 (4.8-10.8) X10*3/uL RBC 5.36 (4.60-5.80) X10*6/uL Hgb 16.1 (14.0-18.0) g/dl Hct 46.5 (42.0-52.0) % MCV 86.8 (80.0-98.0) fL MCH 30.0 (27.0-33.0) pg MCHC 34.6 (31.0-36.0) g/dl RDW 12.1 (11.0-16.0) % Plt Count 258 (160-400) X10*3/uL MPV 9.9 (9.4-12.4) fL Immature Gran % (Auto) 0.4 (0.0-0.4) % Neut % (Auto) 82.9 H (45-73) % Lymph % (Auto) 11.6 L (20-40) % [place] % (Auto) 4.4 (2-11) % Eos % (Auto) 0.5 (0-4) % Baso % (Auto) 0.2 (0-2) % Lymph # (Auto) 1.0 L (1.2-4.9) X10*3/uL [place] # (Auto) 0.4 (0.1-1.2) X10*3/uL Eos # (Auto) 0.0 (0.0-0.4) X10*3/uL Baso # (Auto) 0.0 (0.0-0.2) X10*3/uL Abs Immat Gran (auto) 0.03 (0.00-0.03) X10*3/uL Absolute Neuts (auto) 7.0 (2.0-8.3) x10*3/uL Absolute Nucleated RBC 0.000 (0.0-0.012) X10*3/uL Nucleated RBC % (auto) 0.0 (0.0-0.2) /100WBC Sodium 140 (135-145) mmol/L Potassium 4.4 (3.3-5.1) mmol/L Chloride 104 (96-108) mmol/L Carbon Dioxide 24 (22-29) mmol/L Anion Gap 16 (12-20) BUN 18 H (9-16) mg/dL Creatinine 0.83 (0.5-1.4) mg/dL Estim Creat Clear Calc 132.9 Estimated GFR > 60 Random Glucose 146 H (60-115) mg/dL Calcium 9.5 (8.4-10.2) mg/dL Total Bilirubin 1.8 H (0.0-1.0) mg/dL AST 27 (5-37) U/L ALT 28 (0-40) U/L Alkaline Phosphatase 85 (39-117) U/L Total Protein 8.0 (6.5-8.0) g/dL Albumin 4.1 (3.5-5.0) g/dL Lipase 13 (8-78) U/L Independent Interpretation I performed an independent interpretation of an: CT Scan Radiology Impression Discussion of test interpretation with radiology: I have reviewed the radiologist's reading. Radiologist Impression: perinephric stranding. ? BLADDER: Unremarkable.? GASTROINTESTINAL TRACT: Abnormal. Jejunal loops are indurated and thick-walled with stranding surrounding mesenteric edema in a pattern suspicious for enteritis. This could be on an infectious or inflammatory process. Any history of Crohn's disease or inflammatory bowel disease? No evidence for pneumoperitoneum. Colon is intact. There is no right or left lower quadrant inflammatory change. There is mild ascites in the upper abdomen and moderate ascites extending into the pelvis.? ABDOMINAL WALL: No significant hernia is appreciated.? LYMPH NODES: Normal. VASCULAR: Unremarkable. PELVIC VISCERA: Prosthetic calcifications noted. Prostate normal size. Seminal vesicles normal. Perirectal fat planes unremarkable.? OSSEOUS STRUCTURES: No fracture or destructive process.? CT/CT abdomen pelvis w IV con IMPRESSION: Abnormal exam. Jejunal inflammatory change possibly related to inflammatory bowel disease. Medications Administered Discontinued Medications Generic Name Dose Route Start Last Admin Trade Name Freq PRN Reason Stop Dose Admin Fentanyl 50 mcg 07/01/22 09:01 07/01/22 09:14 Fentanyl Citrate/Pf 100 Mcg/2 Ml Vial IVPUSH 07/01/22 09:02 50 mcg ONCE ONE Administration Protocol Sodium Chloride 1,000 mls @ 999 mls/hr 07/01/22 09:15 07/01/22 10:37 Ns IVCONT 07/01/22 10:15 Infused .Q1H1M CORRIE Infusion Iohexol 100 ml 07/01/22 10:17 07/01/22 10:18 Iohexol 350 Mg/Ml 100 Ml Infus..Btl IV 07/01/22 10:18 85 ml ONCE ONE Administration Ondansetron HCl 4 mg 07/01/22 09:02 07/01/22 09:15 Ondansetron Hcl 4 Mg/2 Ml Vial IVPUSH 07/01/22 09:03 4 mg ONCE ONE Administration Discharge Plan Discharge Clinical Impression: Abdominal pain, Jejunal inflammation Patient Disposition: Home, Self-Care Instructions: Diet for Stomach Ulcers and Gastritis (ED), Abdominal Pain (ED) Prescriptions: New omeprazole 20 mg capsule,delayed release(DR/EC) 20 mg PO DAILY Qty: 20 0RF No Action cyclobenzaprine 10 mg tablet 10 mg PO Q8H Qty: 10 0RF prednisone 20 mg tablet 40 mg PO DAILY 5 Days Qty: 10 0RF naproxen 500 mg tablet 500 mg PO BID PRN (Reason: pain) Qty: 10 0RF oxycodone 5 mg tablet 5 mg PO BID PRN (Reason: pain) Qty: 10 0RF lidocaine HCl [Aspercreme (lidocaine HCl)] 4 % cream 1 appl topical BID PRN (Reason: pain) Qty: 120 0RF oxycodone 5 mg tablet 5 mg PO Q8H PRN (Reason: pain) Qty: 7 0RF metronidazole 500 mg tablet 500 mg PO Q8H 7 Days Qty: 21 0RF levofloxacin 750 mg tablet 750 mg PO DAILY 7 Days Qty: 7 0RF prednisone 20 mg tablet 40 mg PO DAILY Qty: 10 0RF codeine-guaifenesin 10-100 mg/5 mL liquid 10 ml PO Q6H PRN (Reason: cough) Qty: 237 0RF albuterol sulfate [ProAir HFA] 90 mcg/actuation HFA aerosol inhaler 2 puff inhalation Q4-6H PRN (Reason: Wheezing) Qty: 8.5 0RF Referrals: Kelvin Victor MD [Physician] - 5 days Stand Alone Forms: Work/School Release Interventions: ED Discharge Assessment Last Done: 07/01/22 14:13 Discharge Date/Time: 07/01/22 14:14
[2022-07-01 09:12] LABS: MANUAL DIFF FLAG NO
[2022-07-01 09:13] VITALS: BP 124/79; PULSE 90; RESP 20; TEMP 36.3; O2SAT 96
[2022-07-01] MEDS: fentaNYL citrate/PF 100 MCG/2 ML VIAL 50 MCG IVPUSH (09:14)
[2022-07-01] MEDS: 0.9 % Sodium Chloride 1,000 ML 999 ML IVCONT (09:14)
[2022-07-01 09:15] LABS: Basophils Percent Auto 0.2 % (0-2); Eosinophils Percent Auto 0.5 % (0-4); Hematocrit 46.5 % (42.0-52.0); Hemoglobin 16.1 g/dl (14.0-18.0); Imm Gran Abs Auto 0.03 X10*3/uL (0.00-0.03); Imm Gran Pct Auto 0.4 % (0.0-0.4); Lymphocytes Percent Auto 11.6 % (20-40); Mean Corpuscular HGB Conc 34.6 g/dl (31.0-36.0); Mean Corpuscular Volume 86.8 fL (80.0-98.0); Mean Platelet Volume 9.9 fL (9.4-12.4); Monocytes Absolute Auto 0.4 X10*3/uL (0.1-1.2); Monocytes Percent Auto 4.4 % (2-11); Neutrophils Percent Auto 82.9 % (45-73); Platelet Count 258 X10*3/uL (160-400); Red Blood Count 5.36 X10*6/uL (4.60-5.80); Red Cell Distribution Width 12.1 % (11.0-16.0); White Blood Count 8.5 X10*3/uL (4.8-10.8)
[2022-07-01] MEDS: ondansetron HCL 4 MG/2 ML VIAL IVPUSH (09:15)
[2022-07-01 09:30] LABS: Alanine Aminotransferase 28 U/L (0-40); Albumin Level 4.1 g/dL (3.5-5.0); Alkaline Phosphatase 85 U/L (39-117); Anion Gap 16 (12-20); Aspartate Amino Transferase 27 U/L (5-37); Bilirubin Total 1.8 mg/dL (0.0-1.0); Blood Urea Nitrogen 18 mg/dL (9-16); Calcium 9.5 mg/dL (8.4-10.2); Carbon Dioxide 24 mmol/L (22-29); Chloride 104 mmol/L (96-108); Creatinine Clr Calc Pharmacy 132.9; Estimated Glomerular Filt Rate > 60; Glucose Random 146 mg/dL (60-115); Lipase 13 U/L (8-78); Potassium 4.4 mmol/L (3.3-5.1); Sodium 140 mmol/L (135-145)
[2022-07-01] MEDS: iohexoL 350 MG/ML 100 ML INFUS..BTL IV (10:18)
[2022-07-01 12:50] VITALS: BP 109/82; PULSE 66; RESP 14; TEMP 36.6; O2SAT 96
== END 2022-07-01 14:14 | disposition home or self-care (01) ==
PROVIDERS: Emergency Provider Emergency Medicine
DX: R10.10 Upper abdominal pain, unspecified (principal); K28.9 Gastrojejunal ulcer, unspecified as acute or chronic, without hemorrhage or perforation; R11.2 Nausea with vomiting, unspecified; I10 Essential (primary) hypertension; E78.00 Pure hypercholesterolemia, unspecified; Z79.899 Other long term (current) drug therapy
CPT/HCPCS: 36415; 74177; 80053; 83690; 85025; 96361; 96374; 96375; 99284; J2405; J3010; Q9967

== ENCOUNTER 2023-01-18 11:32 | Outpatient (REF) | payer OTHER, SELFPAY ==
[2023-01-18 13:02] LABS: MANUAL DIFF FLAG NO
[2023-01-18 13:07] LABS: Basophils Percent Auto 0.6 % (0-2); Eosinophils Absolute Auto 0.2 X10*3/uL (0.0-0.4); Eosinophils Percent Auto 3.7 % (0-4); Hematocrit 41.6 % (42.0-52.0); Hemoglobin 13.9 g/dl (14.0-18.0); Imm Gran Abs Auto 0.02 X10*3/uL (0.00-0.03); Imm Gran Pct Auto 0.4 % (0.0-0.4); Lymphocytes Absolute Auto 1.3 X10*3/uL (1.2-4.9); Mean Corpuscular HGB Conc 33.4 g/dl (31.0-36.0); Mean Corpuscular Volume 89.8 fL (80.0-98.0); Mean Platelet Volume 10.7 fL (9.4-12.4); Monocytes Absolute Auto 0.4 X10*3/uL (0.1-1.2); Neutrophils Absolute Auto 2.8 x10*3/uL (2.0-8.3); Neutrophils Percent Auto 59.3 % (45-73); Platelet Count 230 X10*3/uL (160-400); Red Blood Count 4.63 X10*6/uL (4.60-5.80); Red Cell Distribution Width 12.6 % (11.0-16.0); White Blood Count 4.7 X10*3/uL (4.8-10.8)
[2023-01-18 13:20] LABS: Estimated Average Glucose 100 mg/dL; Hemoglobin A1c % 5.1 % (<6.0)
[2023-01-18 13:25] LABS: Alanine Aminotransferase 22 U/L (0-40); Albumin Level 4.3 g/dL (3.5-5.0); Alkaline Phosphatase 78 U/L (39-117); Anion Gap 9 (12-20); Aspartate Amino Transferase 23 U/L (5-37); Bilirubin Total 1.2 mg/dL (0.0-1.0); Blood Urea Nitrogen 18 mg/dL (9-16); Calcium 9.5 mg/dL (8.4-10.2); Carbon Dioxide 30 mmol/L (22-29); Chloride 107 mmol/L (96-108); Cholesterol 238 mg/dL (<200); Estimated Glomerular Filt Rate > 60; Glucose Random 89 mg/dL (60-115); HDL Cholesterol 47 mg/dL (>40); LDL Cholesterol Calculated 162 mg/dL (<100); Sodium 142 mmol/L (135-145); Total Protein 8.3 g/dL (6.5-8.0); Triglycerides 147 mg/dL (<150)
[2023-01-18 13:42] LABS: TSH reflex Free T4 1.08 uIU/mL (0.32-4.0); Vitamin D 25-OH Total 21.6 ng/mL (>30)
[2023-01-18 13:48] LABS: Creatinine Urine 239.06 mg/dL; Microalbum/Creatinine Ratio Ur 72.7 ug/mg cr (<30)
[2023-01-18 15:15] LABS: CT PCR NOT DETECTED (Not Detect.); NG PCR NOT DETECTED (Not Detect.)
[2023-01-18 17:00] LABS: Iron 104 mcg/dL (45-160); Percent Iron Saturation 35 % (15-50); Total Iron Binding Capacity 296 mcg/dL (228-428); Unsaturated Iron Binding 192 ug/dL
[2023-01-18 17:13] LABS: Ferritin 50 ng/mL (20-250)
[2023-01-18 17:29] LABS: Vitamin B12 202 pg/mL (200-900)
[2023-01-19 04:14] LABS: Syphilis Screen Nonreactive (Nonreactive)
[2023-01-19 04:32] LABS: HBS Num1 0.15 mIU/mL (0-7.99); HBc Num1 0.27 S/CO (0.00-0.79); HIV AB/AG Nonreactive (Nonreactive); Hepatitis B Core Antibody Nonreactive (Nonreactive); ~Hepatitis B Surface Antibody NONREACTIVE (Nonreactive)
[2023-01-19 04:46] LABS: ~HepC Num1 0.26 S/CO (0.00-0.79); ~Hepatitis C Antibody Nonreactive (Nonreactive)
[2023-01-19 05:38] LABS: HBsAGNum2 Reactive; HBsAGNum3 Reactive
[2023-01-19 05:39] LABS: Hepatitis B Surface Antigen Retest CNFM (Negative)
[2023-01-19 05:40] LABS: Hepatitis B Surface Antigen Reactive (Negative)
[2023-01-19 10:49] LABS: Free Prostate Spec Ag 0.1 ng/mL; Percent Free Prostate Spec Ag 100 % (calc) (>25); Prostate Specific Ag Total 0.1 ng/mL (< OR = 4.0)
[2023-01-21 09:10] LABS: HBsAG NON-REACTIVE
== END 2023-01-18 11:33 | disposition home or self-care (01) ==
LOC: HO.HHCL 11:32
PROVIDERS: Internal Medicine; Visit Provider Student in an Organized Health Care Education/Training Program
DX: Z00.00 Encounter for general adult medical examination without abnormal findings (principal); D64.9 Anemia, unspecified; Z20.2 Contact with and (suspected) exposure to infections with a predominantly sexual mode of transmission; E55.9 Vitamin D deficiency, unspecified; E78.5 Hyperlipidemia, unspecified; Z13.1 Encounter for screening for diabetes mellitus
CPT/HCPCS: 0353U; 36415; 80053; 80061; 82043; 82306; 82607; 82728; 82746; 83036; 83540; 84154; 84443; 85025; 86704; 86706; 86780; 86803; 87340; 87389

== ENCOUNTER 2023-02-15 12:15 | Outpatient (REF) | payer OTHER, SELFPAY ==
--- NOTE | ~2023-02-15 | XR_ITS ---
EXAMINATION: XR CHEST CLINICAL INFORMATION: Lung abnormality, history of minor dependent opacities in the left lung base on CT abdomen June 2022, to evaluate lung. COMPARISON: CT abdomen 07/01/2022. X-ray chest CT in 2021 and 07/03/2016. TECHNIQUE: 2 views of the chest were obtained. FINDINGS: There is no gross pneumothorax. Lung volumes remain low. Heart size is normal. No gross pleural effusion. No focal consolidation to suggest pneumonia. Moderate degenerative changes in the thoracic spine. Mild hazy opacities in the lower left lung likely correlate with dependent opacities identified on CT scan of 07/01/2022 and are probably similar, allowing for technical differences. These opacities were not appreciated on the exam of 07/03/2016. Comparison with 11/06/2021 exam is limited due to differences in inspiratory effort and technical differences. XR/XR chest 2V IMPRESSION: Mild hazy opacities in the lower left lung likely correlate with dependent opacities identified on CT scan of 07/01/2022 and are probably similar, allowing for technical differences. Differential considerations include chronic change/atelectasis/scar versus possible mild inflammatory process. Correlation with clinical exam recommended to determine further management. Dedicated CT scan of the chest could be considered for further evaluation. Stat results provided to referring provider as requested when this exam was presented to me for interpretation on 02/15/2023 at 1:05 PM.
== END 2023-02-15 12:16 | disposition home or self-care (01) ==
LOC: HO.HHCX 12:15
PROVIDERS: Visit Provider Student in an Organized Health Care Education/Training Program
DX: J98.4 Other disorders of lung (principal)
CPT/HCPCS: 71046

== ENCOUNTER 2023-03-29 16:35 | Outpatient (REF) | payer OTHER, SELFPAY ==
[2023-03-29 17:37] LABS: Hemoglobin 14.1 g/dl (14.0-18.0); Mean Corpuscular HGB Conc 33.6 g/dl (31.0-36.0); Mean Corpuscular Hemoglobin 30.6 pg (27.0-33.0); Mean Corpuscular Volume 91.1 fL (80.0-98.0); Mean Platelet Volume 10.6 fL (9.4-12.4); Platelet Count 229 X10*3/uL (160-400); Red Blood Count 4.61 X10*6/uL (4.60-5.80); Red Cell Distribution Width 12.6 % (11.0-16.0); White Blood Count 6.1 X10*3/uL (4.8-10.8)
[2023-03-29 18:11] LABS: Alanine Aminotransferase 24 U/L (0-40); Albumin Level 4.2 g/dL (3.5-5.0); Alkaline Phosphatase 94 U/L (39-117); Anion Gap 11 (12-20); Aspartate Amino Transferase 27 U/L (5-37); Bilirubin Total 0.7 mg/dL (0.0-1.0); Blood Urea Nitrogen 13 mg/dL (9-16); Calcium 9.5 mg/dL (8.4-10.2); Carbon Dioxide 28 mmol/L (22-29); Chloride 105 mmol/L (96-108); Estimated Glomerular Filt Rate > 60; Glucose Random 94 mg/dL (60-115); Potassium 3.8 mmol/L (3.3-5.1); Sodium 140 mmol/L (135-145); Total Protein 8.6 g/dL (6.5-8.0)
[2023-04-06 19:49] LABS: Hepatitis B Viral DNA Qn - cp NOT DETECTED Log IU/mL (NOT DETECTED); Hepatitis B Viral DNA Qn-IU/mL NOT DETECTED (NOT DETECTED)
== END 2023-03-29 16:36 | disposition home or self-care (01) ==
LOC: HO.HHCL 16:35
PROVIDERS: Visit Provider Student in an Organized Health Care Education/Training Program
DX: Z00.00 Encounter for general adult medical examination without abnormal findings (principal); Z13.0 Encounter for screening for diseases of the blood and blood-forming organs and certain disorders involving the immune mechanism
CPT/HCPCS: 36415; 80053; 85027; 87517

== ENCOUNTER 2023-06-08 14:06 | Outpatient (AMB) | payer OTHER, SELFPAY ==
--- NOTE | 2023-06-08 14:11 | A.OFFVIS_ITS ---
Intake Vital Signs 06/08/23 14:12 Height 5 ft 11 in Weight 244 lb 4.355 oz BMI 34.1 BP 120/76 Blood Pressure Location Lt brachial Position Sitting Pulse 71 Intake Visit Reasons: BPO SPECIALIST/Dr. Lorenzo Calderón/Abn EKG, HTN Intake Note: BPO SPECIALIST/pt its having some shortness of breath when coughing. Hassock Maker Required: No Accompanied by: Son Allergies No Known Allergies [No Known Allergies*] Allergy (Verified 11/06/21 21:26) Medication List - Last Reviewed 06/08/23 by Apoorva Johnson MA albuterol sulfate 90 mcg/actuation (ProAir HFA) 2 puffs inhalation Q4-6H PRN atorvastatin 10 mg PO DAILY cholecalciferol (vitamin D3) 25 mcg PO QAM lisinopril-hydrochlorothiazide 20-25 mg 1 tab PO DAILY omeprazole 20 mg PO DAILY sennosides (senna) 8.6 mg PO DAILY PRN HPI HPI Comments History of Present Illness Details Chandrakant has been referred for consultation regarding abnormal EKG. Per note from PCP, T inversions in lateral precordial leads and that led to the referral. Patient himself does not have any definitive complaints like exertional angina. Rarely he gets some twinges in the chest but that seems very nonspecific. Otherwise, he can get short of breath with activity. However, he is overweight. He has a history of hypertension. He does not know his medications but we called the pharmacy. According to pharmacy, he is on lisinopril/hydrochlorothiazide. [facility] Medical History Gastritis Hypercholesterolemia Hypertension Family History (Updated 06/08/23 @ 14:33 by Aureliano Urrutia MD) Father Alcohol abuse Social History Alcohol intake: former Patient Tobacco Use Status: Never used Tobacco Review of Systems Const Reports chills, Reports fatigue, Reports fever(s), Reports frequent falls, Reports weakness, Reports weight gain and Reports weight loss ENT Reports dizziness Card Reports chest pain, Reports leg edema, Reports lightheadedness, Reports palpitations, Reports dyspnea, Reports dyspnea on exertion and Reports orthopnea Resp Reports cough, Reports dyspnea and Reports dyspnea on exertion GI Reports bloating and Reports change in bowel habits Musc Reports muscle weakness, Reports numbness and Reports tingling Neuro Reports dizziness, Reports frequent falls, Reports numbness, Reports tingling and Reports weakness Endo Reports fatigue and Reports palpitations Physical Exam Vital Signs: Last Vital Signs Pulse 71 06/08/23 14:12 BP 120/76 06/08/23 14:12 BMI result Body Mass Index 34.1 Const General: comfortable and no acute distress Orientation/consciousness: patient oriented x3 HEENT Other: Unremarkable Head: Yes normal to inspection Neck Neck: Yes normal visual inspection Chest Chest palpation & inspection: normal inspection of the chest Resp Auscultation: clear to auscultation bilaterally Cardio Palpation: normal PMI Heart sounds: S1 normal heart sound present, S2 normal heart sound present, no gallops, no murmurs and no rubs GI Palpation (GI): Soft to palpation Back/Spine/Pelvis Other: unremarkable Skin General skin exam: no rashes or lesions noted Neuro General: patient oriented x3 Extrem General: Yes normal to inspection Psych Mental Status: mental status grossly normal Office Procedures EKG Details: EKG with sinus rhythm at 71/Min; T inversions in inferior as well as lateral precordial leads; [place] [id number], Complete Assessment & Plan Assessment & Plan (1) Abnormal EKG: Code(s): R94.31 - Abnormal electrocardiogram [ECG] [EKG] (2) Hypertension: Code(s): I10 - Essential (primary) hypertension (3) Hypercholesterolemia: Code(s): E78.00 - Pure hypercholesterolemia, unspecified Plan Abnormal looking EKG with some atypical chest pain and risk factors including obesity, hypertension, dyslipidemia. We will evaluate him for ischemic heart disease with an echocardiogram and stress test. Discussed with son who came for appointment who also acted as supervisor asbestos removal- appropriate forms signed. Follow-up after the above. Orders: Orders CA echo transthoracic complete Today I25.10 - Atherosclerotic heart disease of [place] coronary artery without angina pectoris, R94.31 - Abnormal electrocardiogram [ECG] [EKG] NM cardiolite stress test Today R07.2 - Precordial pain, R94.31 - Abnormal electrocardiogram [ECG] [EKG] CA stress test Today R07.2 - Precordial pain, R94.31 - Abnormal electrocardiogram [ECG] [EKG] Coding Level of Care Code New Pt Level 4 (37912) Diagnoses Abnormal EKG R94.31 Hypertension I10 Hypercholesterolemia E78.00 CPT Codes EKG - CPT: [id number], Complete ([id number])
[2023-06-08 14:12] VITALS: BP 120/76; PULSE 71; BMI 34.1
== END 2023-06-08 14:42 | disposition home or self-care (01) ==
PROVIDERS: Visit Provider Internal Medicine
DX: R94.31 Abnormal electrocardiogram [ECG] [EKG] (principal); I10 Essential (primary) hypertension; E78.00 Pure hypercholesterolemia, unspecified
CPT/HCPCS: 93010; 99204

== ENCOUNTER → 2023-06-08 14:06 | Outpatient (BNVA) | payer OTHER, SELFPAY | PROVIDERS: Visit Provider Internal Medicine | DX: R94.31 Abnormal electrocardiogram [ECG] [EKG] (principal); I10 Essential (primary) hypertension; E78.00 Pure hypercholesterolemia, unspecified | CPT/HCPCS: 93005 ==

== ENCOUNTER → 2023-07-26 07:35 | Outpatient (REF) | payer OTHER, SELFPAY ==
--- NOTE | ~2023-07-26 | NM_ITS ---
Exercise Myocardial perfusion study Indication: Precordial pain to evaluate for myocardial ischemia Technique: The patient was brought in for an exercise perfusion study on 07/26/2023. Patient performed exercise as per Kel protocol and was injected 40 mCi of sestamibi was given intravenously one target HR was achieved. Images were obtained using the SPECT gamma camera interlaced with the gating device. Images were obtained in supine position. Resting perfusion study was performed on 08/02/2023. Patient was administered 40 mCi of sestamibi intravenously at rest. Images were then obtained in supine position. Images obtained with and without CT attenuation. Total DLP 125 mGy-cm Images were processed with the software and compared side to side in short axis, horizontal long axis and vertical long axis views. Findings: The stress perfusion study showed non attenuated images show moderately reduced uptake in the basal inferior and mildly reduced uptake in the mid and apical portion of the inferior wall with mildly reduced uptake in the adjacent inferolateral wall of the LV myocardium. Remainder of the LV myocardium is normally perfused. Attenuation corrected images show mildly reduced uptake in the apex with extension into the adjacent anteroapical and inferoapical wall of the LV myocardium.. The gated study shows reduced LV systolic function with calculated LVEF of 38%. LV cavity is mildly to moderately dilated in size. The gated study shows diffusely reduced wall thickening and contraction of all segments. There is no transient ischemic dilation. Resting study shows non attenuated images show improved uptake in the inferior and the adjacent inferolateral wall of LV myocardium. Attenuation corrected images show no changes in perfusion pattern.. Gating at rest reveals diffuse knee reduced wall motion with ejection fraction at 39%. The findings are consistent with based on attenuated corrected images there appears to be no reversible defect suggestive of ischemia.. NM/NM cardiolite stress test Impression: 1. Normal myocardial ischemia 2. Gated LVEF is 38% 3. Transient ischemic dilatation not present but LV cavity is dilated Stress EKG is negative for ischemia
--- NOTE | 2023-07-26 07:38 | CA_ITS ---
Acquisition Time: 2023-07-26 09:16:43 Total Exercise Time: 00:05:41 Test Indications: Abnormal ECG Medications: ALBUTEROL ATORVASTATIN LISINOPRIL/HCTZ OMEPRAZOLE Protocol: MICKY Max HR: 150 BPM 89% of Pred: 167 BPM Max BP: 150/070 mmHG Max Work Load: 7.0 METS Exercise stress test exercise 5 min 41 sec of Micky protocol achieving 90% MPHR, with mild to moderate SOB, no chest discomfort, without arrhythmias, with normotensive response to exercise, without EKG changes. Nuclear images pending. Test reviewed with Dr. Gant. Referred By: Aureliano Urrutia Overread By: Dee Dee Pascual
--- NOTE | 2023-07-26 07:38 | CA_ITS ---
Transthoracic Echocardiogram Patient (Last, First, Middle): Chandrakant Cruz, Gender: Male Date of : 1970 Age: 52 Procedure Date: 07/26/2023 Procedure Type: Transthoracic Echocardiogram Location: OP Height: 180.34 cm Weight: 111.13 kg BSA: 2.30 m2 Heart Rate: 71 bpm BP: 138 / 90 mmHg National Service Officer: YANCY Referring MD: Aureliano Urrutia MD Symptoms: I25.10 - Atherosclerotic heart disease of [place] coronary artery without... Study Quality: Fair w/Contrast ECG Rhythm: Sinus Conclusions: - The left ventricular systolic function is moderately decreased. The calculated ejection fraction is 36% by biplane method. - There is moderate global hypokinesis. - The basal inferior segment is akinetic. - No obvious valvular pathology seen on this study. Findings Procedure Information Contrast agent, definity, is being given per protocol without apparent complications. Left Ventricle Normal left ventricular cavity size. There is mildly increased left ventricular wall thickness. The left ventricular systolic function is moderately decreased. The calculated ejection fraction is 36% by biplane method. There is moderate global hypokinesis. Wall Motion Rest Echo Findings The basal inferior segment is akinetic. Right Ventricle Mildly increased right ventricular cavity size. There is low normal right ventricular systolic function. Atria Both atria are normal in size. Aortic Valve There is a normal trileaflet aortic valve. There is mild calcification of the aortic valve. There is no aortic valve stenosis. There is no aortic valve regurgitation. Mitral Valve There is mild mitral annular calcification. There is trace mitral valve regurgitation. There is no mitral valve stenosis. Pulmonic Valve The pulmonic valve is likely normal. Tricuspid Valve Normal tricuspid valve structure. There is trace tricuspid valve regurgitation. There is no evidence of pulmonary hypertension. Great Vessels The asc aorta is normal in size. Venous The inferior vena cava is normal in size and collapses greater than 50% with inspiration. Pericardium/Pleural There is no evidence of pericardial effusion. Prior Study Comparison No prior study available for comparison. Recommendations, Care & Conclusions No obvious valvular pathology seen on this study. Measurements 2D Linear Measurements IVSd: 1.24 0.6-0.9/0.6-1.0 cm LVIDd: 4.89 3.9-5.3/4.2-5.9 cm LVIDd Index: 2.13 2.4-3.2/2.2-3.1 cm/m2 LVIDs: 3.30 2.0-3.6 cm LVPWd: 1.20 0.7-1.1 cm LA Diam: 4.00 2.7-3.8/3.0-4.0 cm LAIDs Index: 1.74 1.5-2.3 cm/m2 LV Mass: 287.98 67-162/88-224 g LV Mass Index: 125.21 43-95/49-115 g/m2 LVOT Diam: 2.00 3.0+(-)1.3 cm 2D Systolic Function EF 4C: 33.00 >55% EF 2C: 41.20 >55% EF BiP: 36.10 >55% Mitral Valve MV Pk E: 1.14 MV PK A: 0.75 MV Decel Time: 181.00 E/A: 1.50 E'Lateral: 5.33 E'Medial: 4.90 E/E' Med: 23.30 E/E' Lat: 21.40 PHT: 53.00 MVA PHT: 4.15 Decel [place]: 6.28 Aortic Valve AoV Pk [place]: 1.25 AoV Mn [place]: 0.90 AoV VTI: 0.24 AoV Pk Grad: 6.00 Aov Mn Grad: 4.00 ZENOBIA Cont.VTI: 2.66 LVOT LVOT Pk [place]: 1.03 LVOT Mn [place]: 0.73 LVOT VTI: 0.20 LVOT Pk Grad: 4.00 LVOT Mn Grad: 2.00 LVOT Diam: 2.00 LVOT Area: 3.14 Diastolic Function MV Pk E: 1.14 MV Pk A: 0.75 E/A: 1.50 E'Medial: 4.90 E/E' Med: 23.30 E' Laterial: 5.33 E/E' Lat: 21.40 Right Ventricle TAPSE (mm): 21.40 TVS' [place]: 8.92 Tricuspid Valve TR Pk [place]: 1.58 TR Pk Grad: 10.00 RA Press: 3.00 RVSP: 13.00 Great Vessels Aorta Sinus of Valsalva: 3.00 2.0-3.5 cm Ao Asc: 3.20 2.1-3.4 cm Pulmonary Valve PV Pk [place]: 0.87 Peak PV Grad: 3.00 Updated in Other Vendor System with Status of Final Aureliano Urrutia MD electronically signed on 07/26/2023 9:17:16 AM with status of Final
== END ==
LOC: HO.CARD 07:35
PROVIDERS: PCP Student in an Organized Health Care Education/Training Program; Visit Provider Internal Medicine
DX: R07.2 Precordial pain (principal); I25.10 Atherosclerotic heart disease of native coronary artery without angina pectoris; R94.31 Abnormal electrocardiogram [ECG] [EKG]
CPT/HCPCS: 78452; 93017; 93306; A9500; Q9957

== ENCOUNTER → 2023-07-26 07:38 | Outpatient (BNV) | payer OTHER, SELFPAY | PROVIDERS: PCP Student in an Organized Health Care Education/Training Program; Visit Provider Nurse Practitioner | DX: R94.31 Abnormal electrocardiogram [ECG] [EKG] (principal); R06.02 Shortness of breath | CPT/HCPCS: 78452; 93016; 93018; 93306 ==

== ENCOUNTER 2023-08-26 14:38 | Outpatient (AMB) | payer OTHER, SELFPAY ==
--- NOTE | 2023-08-26 15:02 | MHC.OFFVIS ---
Intake Vital Signs 08/26/23 15:03 Height 5 ft 11 in Weight 255 lb 11.779 oz BMI 35.7 BP 140/78 H Blood Pressure Location Lt brachial Position Sitting Pulse 78 Intake Visit Reasons: s/p mibi/ echo HS Intake Note: PT feels after echo n mibi Marine Fisheries Technician Required: Yes Marine Fisheries Technician Name: [id number] Allergies No Known Allergies [No Known Allergies*] Allergy (Verified 11/06/21 21:26) Medication List - Last Reconciled 08/26/23 by Dee Dee Pascual NP lisinopril-hydrochlorothiazide 20-25 mg 1 tab PO DAILY HPI HPI Comments History of Present Illness Details 53-year-old male presents today for a follow-up on echo and stress. He reports he has not getting check pains but a agitated and prick feeling in chest occasionally. He denies smoking, drug use, or alcohol use, PFSH Medical History Gastritis Hypercholesterolemia Hypertension Family History (Updated 06/08/23 @ 14:33 by Aureliano Urrutia MD) Father Alcohol abuse Social History Alcohol intake: former Patient Tobacco Use Status: Never used Tobacco Review of Systems Const Denies weakness ENT Denies dizziness Card Denies chest pain, Denies chest pain with activity, Denies syncope, Denies rapid heart rate, Denies pedal edema, Denies edema, Denies leg edema, Denies lightheadedness, Denies palpitations, Denies dyspnea, Denies dyspnea on exertion and Denies orthopnea Resp Denies cough, Denies dyspnea and Denies dyspnea on exertion GI Denies hematochezia and Denies change in stool character Musc Denies abnormal gait, Denies muscle cramps, Denies muscle weakness, Denies numbness, Denies radiating pain into limb and Denies tingling Neuro Denies abnormal gait, Denies dizziness, Denies syncope, Denies numbness, Denies tingling and Denies weakness Endo Denies palpitations Physical Exam Vital Signs: Last Vital Signs Pulse 78 08/26/23 15:03 BP 140/78 H 08/26/23 15:03 BMI result Body Mass Index 35.7 Results Reviewed Results Reviewed: Conclusions: - The left ventricular systolic function is moderately decreased. The calculated ejection fraction is 36% by biplane method. - There is moderate global hypokinesis. - The basal inferior segment is akinetic. - No obvious valvular pathology seen on this study. Assessment & Plan Assessment & Plan (1) Abnormal EKG: Code(s): R94.31 - Abnormal electrocardiogram [ECG] [EKG] (2) Hypertension: Code(s): I10 - Essential (primary) hypertension Plan Echocardiogram showing moderately decreased LV systolic function. EF of 36%. Moderate global hypoensis and basal inferior segment is akinetic. He is due for a CTA on 11/09. Patient imformed the importance of medication compliance. Coding Level of Care Code Est Pt Level 3 (98480) Diagnoses Abnormal EKG R94.31 Hypertension I10
[2023-08-26 15:03] VITALS: BP 140/78; PULSE 78; BMI 35.7
== END 2023-08-26 15:49 | disposition home or self-care (01) ==
PROVIDERS: Visit Provider Nurse Practitioner
DX: R94.31 Abnormal electrocardiogram [ECG] [EKG] (principal); I10 Essential (primary) hypertension
CPT/HCPCS: 99213

== ENCOUNTER → 2023-08-26 14:38 | Outpatient (BNVA) | payer OTHER, SELFPAY | PROVIDERS: Visit Provider Nurse Practitioner | DX: Z13.89 Encounter for screening for other disorder (principal) ==

== ENCOUNTER 2023-11-17 15:10 | Outpatient (AMB) | payer OTHER, SELFPAY ==
[2023-11-17 15:13] VITALS: BP 124/80; PULSE 86; BMI 34.1
--- NOTE | 2023-11-17 15:13 | MHC.OFFVIS ---
Vital Signs 11/17/23 15:13 Height 5 ft 11 in Weight 244 lb 11.41 oz BMI 34.1 BP 124/80 Blood Pressure Location Lt brachial Position Sitting Pulse 86 Intake Visit Reasons: f/up cta Intake Note: Follow-up CTA feeling good Peoplesoft Functional Analyst Required: Yes Peoplesoft Functional Analyst [place] [facility] [place]ergies Iodinated Contrast Media Adverse Reaction (Verified 11/17/23 15:58) Shortness of Breath Medication List - Last Reconciled 11/17/23 by Dee Dee Pascual NP lisinopril-hydrochlorothiazide 20-25 mg 1 tab PO DAILY HPI Comments Details: 53-year-old male presents today for a follow-up on CTA. He reports he had one episode prick feeling in his chest since last visit. He denies smoking, drug use, or alcohol use. He has been eating better and has lost 11 lbs. [facility] Medical History (Updated 11/19/23 @ 08:14 by Dee Dee Pascual NP) Gastritis Hypercholesterolemia Hypertension Family History Father Alcohol abuse Social History Alcohol intake: former Patient Tobacco Use Status: Never used Tobacco Review of Systems Const Denies chills, Denies fatigue, Denies fever(s), Denies frequent falls, Denies weakness, Denies weight gain and Denies weight loss ENT Denies dizziness Card Denies chest pain, Denies leg edema, Denies lightheadedness, Denies palpitations, Denies dyspnea, Denies dyspnea on exertion, Denies orthopnea and Denies other (loss of consciousness) Resp Denies cough, Denies dyspnea and Denies dyspnea on exertion GI Denies hematochezia and Denies change in stool character Musc Denies abnormal gait, Denies muscle weakness, Denies numbness, Denies radiating pain into limb and Denies tingling Neuro Denies abnormal gait, Denies dizziness, Denies frequent falls, Denies numbness, Denies tingling and Denies weakness Endo Denies fatigue and Denies palpitations Physical Exam Vital Signs: Last Vital Signs Pulse 86 11/17/23 15:13 BP 124/80 11/17/23 15:13 BMI result Body Mass Index 34.1 Results Reviewed Results Reviewed: CTA: IMPRESSION: 1. Minimal stenosis (1-24%) in the distal left main and distal LAD due to short segments of mixed plaque. Assessment & Plan Assessment & Plan (1) Hypercholesterolemia: Code(s): E78.00 - Pure hypercholesterolemia, unspecified Category: Medical (2) Hypertension: Code(s): I10 - Essential (primary) hypertension Category: Medical Plan Minimal stensois noted on CTA. Discussion of heart healthy lifestyle including diet, execise, and blood pressure control. On lisinopril - hydrochlorothiazaide for hypertension. Blood pressure within range. Will check cholesterol levels. Orders: Orders Lipid Panel 11/17/23 E78.00 - Pure hypercholesterolemia, unspecified Basic Metabolic Panel 11/17/23 E78.00 - Pure hypercholesterolemia, unspecified Coding Level of Care Code Est Pt Level 3 (45996) Diagnoses Hypercholesterolemia E78.00 Hypertension I10
== END 2023-11-17 16:03 | disposition home or self-care (01) ==
PROVIDERS: Visit Provider Nurse Practitioner
DX: E78.00 Pure hypercholesterolemia, unspecified (principal); I10 Essential (primary) hypertension
CPT/HCPCS: 99213

== ENCOUNTER → 2023-11-17 15:10 | Outpatient (BNVA) | payer OTHER, SELFPAY | PROVIDERS: Visit Provider Nurse Practitioner | DX: I10 Essential (primary) hypertension (principal); E78.00 Pure hypercholesterolemia, unspecified ==

== ENCOUNTER 2024-04-17 09:15 | Outpatient (REF) | payer OTHER, SELFPAY ==
[2024-04-17 11:15] LABS: MANUAL DIFF FLAG NO
[2024-04-17 11:38] LABS: Basophils Absolute Auto 0.1 X10*3/uL (0.0-0.2); Basophils Percent Auto 1.2 % (0-2); Eosinophils Absolute Auto 0.4 X10*3/uL (0.0-0.4); Eosinophils Percent Auto 7.7 % (0-4); Hematocrit 41.2 % (42.0-52.0); Hemoglobin 14.3 g/dl (14.0-18.0); Imm Gran Abs Auto 0.01 X10*3/uL (0.00-0.03); Imm Gran Pct Auto 0.2 % (0.0-0.4); Lymphocytes Absolute Auto 1.5 X10*3/uL (1.2-4.9); Mean Corpuscular HGB Conc 34.7 g/dl (31.0-36.0); Mean Corpuscular Hemoglobin 31.2 pg (27.0-33.0); Mean Corpuscular Volume 89.8 fL (80.0-98.0); Monocytes Absolute Auto 0.4 X10*3/uL (0.1-1.2); Monocytes Percent Auto 8.5 % (2-11); Neutrophils Absolute Auto 2.8 x10*3/uL (2.0-8.3); Neutrophils Percent Auto 53.4 % (45-73); Platelet Count 213 X10*3/uL (160-400); Red Blood Count 4.59 X10*6/uL (4.60-5.80); Red Cell Distribution Width 12.8 % (11.0-16.0); White Blood Count 5.2 X10*3/uL (4.8-10.8)
[2024-04-17 12:22] LABS: Alanine Aminotransferase 26 U/L (0-40); Alkaline Phosphatase 79 U/L (39-117); Anion Gap 11 (12-20); Aspartate Amino Transferase 32 U/L (5-37); Bilirubin Total 1.1 mg/dL (0.0-1.0); Blood Urea Nitrogen 15 mg/dL (9-16); Calcium 9.3 mg/dL (8.4-10.2); Carbon Dioxide 25 mmol/L (22-29); Chloride 105 mmol/L (96-108); Estimated Glomerular Filt Rate > 60; Glucose Random 95 mg/dL (60-115); Potassium 3.9 mmol/L (3.3-5.1); Sodium 137 mmol/L (135-145); TSH reflex Free T4 1.85 uIU/mL (0.32-4.0); Total Protein 7.9 g/dL (6.5-8.0)
== END 2024-04-17 09:16 | disposition home or self-care (01) ==
LOC: HO.HHCL 09:15
PROVIDERS: Visit Provider Internal Medicine
DX: R06.09 Other forms of dyspnea (principal); E78.5 Hyperlipidemia, unspecified
CPT/HCPCS: 36415; 80053; 84443; 85025

== ENCOUNTER 2024-04-19 14:49 | Outpatient (REF) | payer OTHER, SELFPAY ==
--- NOTE | ~2024-04-19 | US_ITS ---
EXAMINATION: US TRIPLEX LOWER EXTREMITY, LEFT CLINICAL INFORMATION: Left leg swelling, rule out DVT COMPARISON: None available. TECHNIQUE: Color-flow triplex imaging with spectral analysis and compression Doppler were performed on the left lower extremity. FINDINGS: Respiratory variation, normal compression and augmented flow are noted throughout the left lower extremity. The visualized common femoral vein, superficial femoral vein, profunda femoral vein, popliteal vein and midcalf peroneal and posterior tibial venous segments show no evidence of deep venous thrombosis. There is no Vargas's cyst. In the superficial soft tissues in the region of the popliteal fossa, there are multiple dilated superficial veins measuring up to 0.8 cm. US/US venous duplex LE IMPRESSION: 1. No evidence of deep venous thrombosis involving the left lower extremity. 2. Multiple dilated superficial veins in the region of the popliteal fossa. Electronically signed by: Danna Grossman MD 04/19/2024 03:56 PM [facility] Workstation: [id number]
== END 2024-04-19 14:50 | disposition home or self-care (01) ==
LOC: HO.US 14:49
PROVIDERS: PCP Student in an Organized Health Care Education/Training Program; Visit Provider Internal Medicine
DX: M79.89 Other specified soft tissue disorders (principal)
CPT/HCPCS: 93971

== ENCOUNTER 2024-11-29 14:44 | Outpatient (REF) | payer OTHER, SELFPAY ==
[2024-11-29 17:41] LABS: Anion Gap 10 (12-20); Blood Urea Nitrogen 18 mg/dL (9-16); Calcium 9.3 mg/dL (8.4-10.2); Carbon Dioxide 26 mmol/L (22-29); Chloride 107 mmol/L (96-108); Estimated Glomerular Filt Rate > 60; Potassium 3.6 mmol/L (3.3-5.1); Sodium 139 mmol/L (135-145)
== END 2024-11-29 14:45 | disposition home or self-care (01) ==
LOC: HO.LAB 14:44
PROVIDERS: PCP Student in an Organized Health Care Education/Training Program
DX: I42.8 Other cardiomyopathies (principal); I10 Essential (primary) hypertension; E78.00 Pure hypercholesterolemia, unspecified; R06.02 Shortness of breath
CPT/HCPCS: 36415; 80048; 93005

== ENCOUNTER 2024-11-29 14:44 | Outpatient (AMB) | payer OTHER, SELFPAY ==
--- NOTE | 2024-11-29 14:51 | A.OFFVIS_ITS ---
Vital Signs 11/29/24 14:53 Height 5 ft 11 in Weight 237 lb 3.478 oz BMI 33.1 BP 140/100 H Blood Pressure Location Lt brachial Position Sitting Pulse 80 Pulse Source Monitor Intake Visit Reasons: Shortness of breath Intake Note: extremly sob, Escort Car Driver Required: No Escort Car Driver Services: Escort Car Driver Offered & Declined Accompanied by: Son Allergies Iodinated Contrast Media Adverse Reaction (Verified 11/17/23 15:58) Shortness of Breath Medication List - Last Reconciled 11/29/24 by Jamin Gomez NP No Known Home Meds HPI Comments Details: This is a 54-year-old male patient coming in for a follow-up visit, accompanied by his son who powder cutting operator throughout the visit. Patient was seen in the office last year for an abnormal EKG for which patient underwent an echocardiogram, myocardial perfusion study, and a coronary CTA. Today, patient reports shortness of breath with exertion for the past few months. Patient with a history of nonischemic cardiomyopathy and hypertension. Patient is not on any medications currently. Patient states that he he was previously on hypertension medications however has not been taking it for at least 6 months as he has not been able to get in for an appointment with the PCP office. Patient is otherwise denying any associated symptoms of exertional chest pain, palpitations, dizziness, orthopnea, PND, leg edema, presyncope, or syncope. [facility] Medical History Gastritis Hypercholesterolemia Hypertension Family History Father Alcohol abuse Social History Alcohol intake: former Patient Tobacco Use Status: Never used Tobacco Review of Systems Const Denies chills, Denies fatigue, Denies fever(s), Denies frequent falls, Denies weakness, Denies weight gain and Denies weight loss ENT Denies dizziness Card Denies chest pain, Denies leg edema, Denies lightheadedness, Reports palpitations, Reports dyspnea, Reports dyspnea on exertion and Reports orthopnea Resp Denies cough, Reports dyspnea and Reports dyspnea on exertion GI Denies hematochezia Musc Denies abnormal gait, Denies muscle weakness, Denies numbness, Denies radiating pain into limb and Denies tingling Neuro Denies abnormal gait, Denies dizziness, Denies frequent falls, Denies numbness, Denies tingling and Denies weakness Endo Denies fatigue and Reports palpitations Physical Exam Vital Signs: Last Vital Signs Pulse 80 11/29/24 14:53 BP 140/100 H 11/29/24 14:53 BMI result Body Mass Index 33.1 Const General: cooperative, healthy appearing, comfortable and no acute distress Orientation/consciousness: patient oriented x3 HEENT Head: Yes normal to inspection Neck Neck: Yes normal visual inspection, Yes trachea midline and Yes supple Chest Chest palpation & inspection: normal inspection of the chest Resp Effort & Inspection: normal respiratory effort Auscultation: clear to auscultation bilaterally, no crackles, no rales, no rhonchi and no wheezes Cardio Jugular venous distension: no JVD Palpation: normal PMI Rate: regular rate Rhythm: regular rhythm Heart sounds: S1 normal heart sound present, S2 normal heart sound present, no click, no gallops, no murmurs and no rubs Peripheral pulses: Peripheral pulses 2+ throughout GI Inspection: Yes normal to inspection Palpation (GI): Soft to palpation Auscultation: normal bowel sounds Skin General skin exam: no rashes or lesions noted Neuro General: patient oriented x3 Extrem General: Yes normal to inspection, No no pedal edema and No calf tenderness Psych Appearance: grossly normal Mental Status: mental status grossly normal Speech and movement: Normal speech and movement present Office Procedures EKG Details: EKG today showed normal sinus rhythm, rate 80 beats per minute, T-wave inversion inferiorly and in leads V4 through V6 (not new), [place], [place]. [id number], Complete Assessment & Plan Assessment & Plan (1) Nonischemic cardiomyopathy: Code(s): I42.8 - Other cardiomyopathies Category: Medical Plan: 07/26/2023-patient underwent an echo study that showed moderately decreased LV systolic function with an ejection fraction at 36%, with moderate global hypokinesis, and akinetic basal inferior segment. 07/26/2023-myocardial perfusion study showed normal perfusion. 11/10/2023-patient underwent a coronary CTA that showed minimal stenosis in the left main and distal LAD. Patient's shortness of breath could be multifactorial given his cardiomyopathy, obesity, and uncontrolled hypertension and hyperlipidemia. Clinically euvolemic today. We will start patient on carvedilol and Entresto therapy. We will titrate up on these medications as tolerated. Emphasized on medication adherence. (2) Hypertension: Code(s): I10 - Essential (primary) hypertension Category: Medical Plan: Blood pressure is elevated today at 140/100. Start the carvedilol and Entresto therapy. Advised monitoring blood pressures at home and maintaining a log of it. Ideally, blood pressure less than 130/80. (3) Hypercholesterolemia: Code(s): E78.00 - Pure hypercholesterolemia, unspecified Category: Medical Plan: No recent lipid profile. LDL back in 2022 high at 163. We will repeat a lipid profile. Ideally, LDL less than 70. Advised on heart healthy diet, regular exercise, medication compliance, and aggressive management of vascular risk factors. Follow up in 1 month in the office. In the interim, patient will call the office with any concerns or change in symptoms. Advised seeking ER care in case of exertional chest pain not resolved with rest. This note was generated using voice recognition software. While every effort has been made to ensure accuracy and proper mounting inspector, there may be occasional errors that could affect the content or meaning of the described symptoms. Orders: Orders Basic Metabolic Panel 11/29/24 I42.8 - Other cardiomyopathies Lipid Panel Today E78.00 - Pure hypercholesterolemia, unspecified CA echo transthoracic complete 3 Weeks I42.8 - Other cardiomyopathies AMB EKG-In Office 11/29/24 I42.8 - Other cardiomyopathies Medications: New carvedilol must administer with a meal/food 12.5 mg PO BID 90 tabs 3RF sacubitril-valsartan 24-26 mg (Entresto) 1 tab PO BID 90 tabs 3RF blood pressure test kit-large As directed 1 ea 0RF Coding Level of Care Code Est Pt Level 4 (41387) Complex EM visit Add On G2211 Diagnoses Nonischemic cardiomyopathy I42.8 Hypertension I10 Hypercholesterolemia E78.00 CPT Codes EKG - CPT: 17531-[id number], Complete ([id number]) Time Spent (min) 34 Comment Time spent in reviewing the chart, test results, assessment, counseling and documentation.
[2024-11-29 14:53] VITALS: BP 140/100; PULSE 80; BMI 33.1
--- OUTSIDE RECORDS SUMMARY | 2024-11-29 15:13 | XMS_ITS | Encounter Summary ---
Author Organization [employer] Address [address] [place] [address] [address] [place] [address] Care Team Providers Care Automobiles Salesperson Name Role Phone Ofe Lu Primary Care Provider [phone] Radha Hunt MD Primary Care Pro vider Encounter Details Date Type Department Care Team (Latest Contact Info) Description 10/20/2018 Abstract C CONVERSIONS Dental, Provider, DDS Social History Tobacco Use Types Packs/Day Years Used Date Smoking Tobacco: Never Assessed Sex and Gender Information Value Date Recorded Sex Assigned at Male 03/23/2022 10:18 AM EDT Legal Sex Male 10:18 AM EDT Gender Identity Male 03/23/2022 10:18 AM EDT Sexual Orientation Choose not to disclose 2021 10:18 AM EDT documented as of this encounter Plan of Treatment Not on file documented as of this encounter Visit Diagnoses Not on filedocumented in this encounter Care Teams Automobiles Salesperson Relationship Specialty Start Date End Date Ofe Lu FNP PCP - General Family Medicine 01/19/22 11/04/22 Radha Hunt MD [address] [place] [id number] PCP - General Internal Medicine 11/16/22 documented as of this encounter
== END 2024-11-29 15:35 | disposition home or self-care (01) ==
LOC: HO.HCS 14:45
PROVIDERS: PCP Student in an Organized Health Care Education/Training Program
DX: I42.8 Other cardiomyopathies (principal); I10 Essential (primary) hypertension; E78.00 Pure hypercholesterolemia, unspecified
CPT/HCPCS: 99214; G2211

== ENCOUNTER → 2025-02-05 15:13 | Outpatient (REF) | payer OTHER, SELFPAY ==
--- NOTE | 2025-02-05 15:17 | CA_ITS ---
Transthoracic Echocardiogram Patient (Last, First, Middle): Chandrakant Cruz, Gender: M Date of : 1970 Age: 54 Procedure Date: 02/05/2025 Procedure Type: Transthoracic Echocardiogram Location: OP Height: 180.34 cm Weight: 107.5 kg BSA: 2.27 m2 Heart Rate: 68 bpm BP: 142 / 86 mmHg Thread Trimmer: SB Referring MD: Jamin Gomez NP Symptoms: I42.8 - Other cardiomyopathies Study Quality: Adequate contrast ECG Rhythm: Sinus Conclusions: - The left ventricular systolic function is mildly decreased. The calculated ejection fraction is 45% by biplane method. - Evidence suggests grade II (moderate) diastolic dysfunction. - The basal inferior segment is akinetic. - No obvious valvular pathology seen on this study. Findings Procedure Information Contrast agent, definity, is being given per protocol without apparent complications. Left Ventricle Normal left ventricular cavity size. The left ventricular systolic function is mildly decreased. The calculated ejection fraction is 45% by biplane method. There is mild global hypokinesis. Evidence suggests grade II (moderate) diastolic dysfunction. There is mild septal asymmetric hypertrophy. Wall Motion Rest Echo Findings The basal inferior segment is akinetic. Right Ventricle Mildly increased right ventricular cavity size. There is normal right ventricular systolic function. Atria Mild biatrial enlargement. Aortic Valve There is a normal trileaflet aortic valve. There is no aortic valve stenosis. There is no aortic valve regurgitation. Mitral Valve There is mild mitral annular calcification. There is trace mitral valve regurgitation. There is no mitral valve stenosis. Pulmonic Valve The pulmonic valve is likely normal. Tricuspid Valve Normal tricuspid valve structure. There is trace tricuspid valve regurgitation. There is no evidence of pulmonary hypertension. Great Vessels The asc aorta and aortic arch are normal in size. Venous The inferior vena cava is normal in size and collapses greater than 50% with inspiration. Pericardium/Pleural There is no evidence of pericardial effusion. Prior Study Comparison Changes noted compared to prior study dated: 07/26/2023. LVEF slightly higher. Recommendations, Care & Conclusions No obvious valvular pathology seen on this study. Measurements 2D Linear Measurements IVSd: 1.11 0.6-0.9/0.6-1.0 cm LVIDd: 5.47 3.9-5.3/4.2-5.9 cm LVIDd Index: 2.41 2.4-3.2/2.2-3.1 cm/m2 LVIDs: 4.25 2.0-3.6 cm LVPWd: 1.01 0.7-1.1 cm LA Diam: 4.30 2.7-3.8/3.0-4.0 cm LAIDs Index: 1.89 1.5-2.3 cm/m2 LV Mass: 284.52 67-162/88-224 g LV Mass Index: 125.34 43-95/49-115 g/m2 LVOT Diam: 2.10 3.0+(-)1.3 cm 2D Systolic Function EF 4C: 47.50 >55% EF 2C: 44.80 >55% EF BiP: 44.50 >55% Mitral Valve MV Pk E: 1.32 MV PK A: 1.05 MV Decel Time: 239.00 E/A: 1.30 E'Lateral: 5.00 E'Medial: 6.42 E/E' Med: 20.60 E/E' Lat: 26.40 PHT: 70.00 MVA PHT: 3.14 Decel [place]: 5.54 Aortic Valve AoV Pk [place]: 1.58 AoV Pk Grad: 10.00 ZENOBIA: 2.95 LVOT LVOT Pk [place]: 1.32 LVOT Mn [place]: 0.90 LVOT VTI: 0.24 LVOT Pk Grad: 7.00 LVOT Mn Grad: 4.00 LVOT Diam: 2.10 LVOT Area: 3.46 Diastolic Function MV Pk E: 1.32 MV Pk A: 1.05 E/A: 1.30 E'Medial: 6.42 E/E' Med: 20.60 E' Laterial: 5.00 E/E' Lat: 26.40 Right Ventricle TAPSE (mm): 23.40 TVS' [place]: 11.50 Tricuspid Valve RA Press: 3.00 Great Vessels Aorta Sinus of Valsalva: 2.90 2.0-3.5 cm Ao Asc: 3.20 2.1-3.4 cm Ao Arch: 2.50 Ao Desc: 2.50 Pulmonary Veins Pulm Vein S/D 1.20 Pulmonary Valve PV Pk [place]: 0.96 Peak PV Grad: 4.00 Updated in Other Vendor System with Status of Final Aurleiano Urrutia MD electronically signed on 02/06/2025 11:32:45 AM with status of Final
--- OUTSIDE RECORDS SUMMARY | 2025-02-05 20:42 | XMS_ITS | Encounter Summary ---
Author Organization [employer] Address [address] [place] [address] [address] [place] [address] Care Team Providers Care Bilingual Hr Generalist Name Role Phone Ofe Lu Primary Care Provider Anu charityilaRadha Stone MD Primary Care Pro vider Encounter Details Date Type Department Care Team (Latest Contact Info) Description 10/20/2018 Abstract HHC CONVERSIONS Dental, Provider, DDS Social History Tobacco [...] on filedocumented in this encounter Care Teams Bilingual Hr Generalist Relationship Specialty Start Date End Date Ofe Lu FNP PCP - General Family Medicine 01/19/22 11/04/22 Radha Hunt MD [address] [place] [address] PCP - General Internal Medicine 11/16/22 documented as of this encounter
--- OUTSIDE RECORDS SUMMARY | 2025-02-05 20:42 | XMS_ITS | Encounter Summary ---
Author Organization [employer] Address [address] [place] [address] [address] [place] [address] Care Team Providers Care Warehouse Traffic Supervisor Name Role Phone Ofe Lu Primary Care Provider Anu vailable Radha Hunt MD Primary Care Pro vider Encounter Details Date Type Department Care Team (Latest Contact Info) Description 03/31/2021 Abstract HHC CONVERSIONS Dental, Provider, DDS Social [...] on filedocumented in this encounter Care Teams Warehouse Traffic Supervisor Relationship Specialty Start Date End Date Ofe Lu FNP PCP - General Family Medicine 01/19/22 11/04/22 Radha Hunt MD [address] [place] [address] PCP - General Internal Medicine 11/16/22 documented as of this encounter
--- OUTSIDE RECORDS SUMMARY | 2025-02-05 20:42 | XMS_ITS | Encounter Summary ---
Author Organization [employer] Address [address] [facility] [address] [place] [address] Care Team Providers Care Metal Roofer Name Role Phone Radha Hunt MD Primary Care Pro vider Encounter Details Date Type Department Care Team ([facility] st Contact Info) Description 05/11/2024 Orders Only [facility] [address] [place] [address] ProviderMary MD Social History Tobacco Use Types Packs/Day Years Used Date Smoking Tobacco: Never Passive Smoke Exposure: Never Smokeless Tobacco: Never Alcohol Use Standard Drinks/Week Comments Yes 0 (1 standard drink = 0.6 oz pur e alcohol) social Depression Answer Date Recorded Patient Health Questionnaire-9 Score 10 02/04/2023 Housing Stability Answer Date Recorded What is your housing situation today? I have azeb armendariz 03/29/[address] you li ve. Do you have problems with any of the following? None of the above 03/29/2023 Food Insecurity Answer Date Recorded Within the past 12 months, y ou worried that your food would run out before you got money to buy more: Never True 03/29/2023 Within the past 12 months,th e food you bought just didn't last and you didn't have enough money to get more: Never True 10/2022 Transportation Answer Date Recorded In the past 12 months, has l ack of transportation kept you from medical appts, meetings, work or from getting things needed for daily living? No 03/29/2023 Utilities Answer Date Recorded In the past 12 months, has t he electric, gas, oil or water company threatened to shut off services in your home? No 03/29/2023 Depression Answer Date Recorded Patient Health Questionnaire-2 Score 5 02/04/2023 Sex and Gender Information Value Date Recorded Sex Assigned at Male 03/23/2022 10:18 AM EDT Legal Sex Male 10:18 AM EDT Gender Identity Male 03/23/2022 10:18 AM EDT Sexual Orientation Choose not to disclose 2021 10:18 AM EDT documented as of this encounter Plan of Treatment Not on file documented as of this encounter Procedures Procedure Name Priority Date/Time Associated Diagnosis Comments HM COLONOSCOPY Routine 04/27/2019 1:42 PM EST documented in this encounter Results * Hm Colonoscopy (04/27/2019 1:42 PM EST) us Historical Provider HEALTH MAINTENANCE Final Result documented in this encounter Visit Diagnoses Not on filedocumented in this encounter Additional Health Concerns Assessment Noted Time PHQ-9 Depression Total Score: 10 023 9:44 AM EDT documented as of this encounter Care Teams Metal Roofer Relationship Specialty Start Date End Date Radha Hunt MD [address] [place] [id number] PCP - General Internal Medicine 11/16/22 documented as of this encounter
--- OUTSIDE RECORDS SUMMARY | 2025-02-05 20:42 | XMS_ITS | Clinical Summary ---
Author Organization [employer] Address [address] [place] [address] Care Team Providers Care Vinyl Dipper Name Role Phone Radha [place] MD Primary Care Pro vider Allergies No known active allergies Medications * This document contains information received from the source organization and may not represent a complete record from that organization. cholecalciferol (Vitamin D-3) 25 MCG (1000 UT) tablet Take 1 tablet (25 mcg) by mouth in the morning. 90 tablet 1 02/15/2023 Active sennosides (Senokot) 8.6 MG tablet Take 1 tablet (8.6 mg) by mouth if needed each day for constipatio n. 90 tablet 02/15/2023 Active Blood Pressure Monitor kit 1 Device in the morning. 1 kit 03/29/2023 Active atorvastatin (Lipitor) 10 MG tablet Take 1 tablet (10 mg) by mouth Once per day. 30 tablet 5 04/17/2024 Active lisinopril-hydro CHLOROthiazide 20-25 MG tablet Take 1 tablet by mouth Once per day. 30 tablet 5 04/17/2024 Active Active Problems Problem Noted Date Diagnosed Date MDD (major depressive disorder) 02/04/2023 Assessment & Plan (02/17/2023 3:24 PM EDT): Patient with Patient with symptoms of anhedonia, hopelessness, sleep disturbance, fatigued, overeating, over-worrying, trouble relaxing and irritability. Symptoms indicate a moderate impact on social and occupational functioning and occur more than half the days. Symptoms have been present for the last two years and are presented in the context of lack of social support, language barrier and family issues. Refused referral for OP individual therapy, but agreed to contact clinician for follow- up BE's if needed. At this time Chandrakant Kowalski meets criteria for Visit Diagnoses: Problem List Items Addressed This Visit Other MDD (major depressive disorder) Patient ready to address current needs Yes Strengths include motivation to change. PLAN: 1. Follow up with [facility]: Not recommended for follow-up 2. Patient goal is to be able to manage stressful situations. 3. Behavioral Recommendations a. Incorporate mindfulness techniques into daily routine b. Contact clinician for follow-up BE's if needed c. Add physical activities to reach goal (lose weight) Assessment & Plan (02/08/2023 12:44 PM EDT): Patient with ymptoms of anhedonia, hopelessness, sleep disturbance, fatigued, overeating, over-worrying, trouble relaxing and irritability. Symptoms indicate a moderate impact on social and occupational functioning, they occur more than half the days and have been present for the last two years. Symptoms presented in the context of lack of social support, language barrier and being away from his family in [place]. Patient will benefit from receiving follow-up BE's and a referral for OP individual therapy if needed. At this time Chandrakant Kowalski meets criteria for Visit Diagnoses: Problem List Items Addressed This Visit Other MDD (major depressive disorder) Patient ready to address current needs Yes Strengths include persistence and motivation to change. PLAN: 1. Follow up with [facility]: Recommended for follow-up: Yes, Chandrakant agreed to have follow-up BE's. 2. Patient goal is to gain motivation 3. Behavioral Recommendations a. Follow-up BE's b. Incorporate mindfulness techniques into daily routine c. Practice self-care and do small steps such as physical exercise and/or walking. Abnormal finding on CT scan 01/18/2023 Varicose veins of both lower extremities 023 Health care maintenance 01/18/2023 Obesity 01/18/2023 Depression with anxiety 01/18/2023 Partial edentulism 10/28/2022 Dental calculus 10/28/2022 Gingival recession, generalized 10/28/2022 Dental abscess 10/26/2022 Closed fracture of tooth 10/26/2022 Vitamin D deficiency 09/13/2017 Dyslipidemia 02/25/2015 Essential hypertension 02/25/2015 Primary insomnia 02/25/2015 Encounters Date Type Department Care Team Description 11/29/2024 Orders Only GENERIC EXTERNAL DATA DEPARTMENT Provider, Generic External Data 11/28/2024 Telephone [facility] MED[facility]INE [address] [place] [address] [phone] Radha Hunt MD Nurse Triage from Last 3 Months Immunizations Immunization Administration Dates Next Due Hep A, ped/adol, 2 dose 06/26/2011,05/30/2010 Influenza injectable quadriv alent IIV4 with preservative 04/21/2016,02/25/2015 Influenza injectable quadriv alent preservative free 04/14/2021,03/23/2019,08/17/2014 Influenza, IIV3, injectable 02/15/2023, 1 Influenza, Split (incl. heidi fied surface antigen) 05/08/2013,02/23/2012 Influenza, seasonal, injecta ble, preservative free 03/20/2015 TD (adult), 2 Lf tetanus tox oid, preservative free, adsorbed 01/18/2023,07/21/2005 Tdap 06/26/2011 Family History Medical History Relation Name Comments Alcohol abuse Father DM2 Father Brain Aneurysm Mother Relation Name Status Comments Father Mother Social History Tobacco Use Types Packs/Day Years Used Date Smoking Tobacco: Never Passive Smoke Exposure: Never Smokeless Tobacco: Never Tobacco Cessation:Counseling Given: Not Answered Alcohol Use Standard Drinks/Week Comments Yes 0 [...] not to disclose 2021 10:18 AM EDT Last Filed Vital Signs Vital Sign Reading Time Taken Comments Blood Pressure 156/106 04/17/2024 8:48 AM EST Pulse 97 04/17/2024 8:38 AM EST Temperature 36.7 C (98 F) 04/17/2024 8:38 AM EST Respiratory Rate 23 04/17/2024 8:38 AM EST Oxygen Saturation 98% 03/29/2023 4:00 PM EST Inhaled Oxygen Concentration - - Weight 109 kg (240 lb) 04/17/2024 8:38 AM EST Height 180.3 cm (5' 11 ) 04/17/2024 8:38 AM EST Body Mass Index 33.47 04/17/2024 8:38 AM EST Plan of Treatment Health Maintenance Due Date Last Done Comments CT Colonography 1969 FIT DNA/Cologuard 1969 FIT 1969 FOBT 1969 Sigmoidoscopy 1969 Disability Screening 1969 Alcohol/Substance Use Screening 1981 Hepatitis B Vaccines (1 of 3 - 19+ 3-dose series) 1988 Pneumococcal Vaccine: 50+ Years (1 of 1 - PCV) 08/16/2019 Zoster Vaccines (1 of 2) 08/16/2019 Dental X-Ray: Full Mouth 09/16/2020 018, 02/10/2012, 08/16/2008 Dental X-Ray: Bitewings 04/01/2022 03/31/20 21, 05/01/2019, 03/22/2019, Additional history exists Dental Oral Exam 10/20/2022 04/21/2022, 12/2020, 05/01/2019, Additional history exists Dental Prophylaxis 04/30/2023 10/28/2022, 1 05/31/2020, 05/01/2019, Additional history exists Depression Monitoring 08/05/2023 02/04/2023, 023 SDOH Screening 03/29/2024 03/29/2023 COVID-19 Vaccine (3 - season) 2025 12/24/2020, 12/04/2020 Influenza Vaccine (#1) 2025 , 04/14/2021, 03/23/2019, Additional history exists Tobacco Screening 04/17/2025 04/17/2024 Colonoscopy 04/27/2026 04/27/2019 Colorectal Cancer Screening 04/27/2026 Lipid Panel 01/19/2028 01/18/2023, 04/2 05/2021, 12/04/2020 DTaP/Tdap/Td Vaccines (3 - Td or Tdap) 01/18/2033 01/18/2023, 06/26/2011, 07/21/2005 RSV Patients and Patients Aged 60 years or older (1 - 1-dose 75+ series) 2044 Hepatitis A Vaccines Aged Out 06/26/2011, 05/30/19 11 No longer eligible based on patient's age to complete this topic HIV Screening Completed 01/18/2023 Hepatitis C Screening Completed 01/18/2023 HIB Vaccines Aged Out No longer eligi ble based on patient's age to complete this topic HPV Vaccines Aged Out No longer eligi ble based on patient's age to complete this topic IPV Vaccines Aged Out No longer eligi ble based on patient's age to complete this topic Meningococcal B Vaccine Aged Out No l onger eligible based on patient's age to complete this topic Meningococcal Vaccine Aged Out No sarita kiran eligible based on patient's age to complete this topic RSV under 20 months Aged Out No longe r eligible based on patient's age to complete this topic Rotavirus Vaccines Aged Out No longer eligible based on patient's age to complete this topic Procedures Procedure Name Priority Date/Time Associated Diagnosis Comments BASIC METABOLIC PANEL Routine 11/29/2024 4:02 PM EDT HEPATITIS C ANTIBODY REFLEX Routine 01/18/2023 11:37 AM EDT HIV ANTIBODY/ANTIGEN ([facility]) Routine 01/18/2023 11:37 AM EDT LIPID PANEL, STANDARD Routine 01/18/2023 11:37 AM EDT PROPHYLAXIS - ADULT Routine 10/28/2022 3 :00 PM EDT Dental calculus PERIODIC ORAL EVALUATION - ESTABLISHED PATIENT Routine 04/21/2022 12:00 AM EST BITEWINGS - 4 RADIOGRAPHIC IMAGES Routine 03/31/2021 12:00 AM EST HM COLONOSCOPY Routine 04/27/2019 1:42 PM EST INTRAORAL - COMPLETE SERIES OF RADIOGRAPHIC IMAGES Routine 09/15/2017 12:00 AM EDT from Last 3 Months or Most Recently Relevant to Health Maintenance Results * (ABNORMAL) Basic Metabolic Panel (11/29/2024 4:02 PM EDT) Sodium 139 135 - 145 mmol/L [facility] Potassium 3.6 3.3 - 5.1 mmol/L [facility] Chloride 107 96 - 108 mmol/L [facility] Carbon Dioxide 26 22 - 29 mmol/L [facility] Anion Gap 10(L) 12 - 20 [facility] Urea Nitrogen (BUN) 18(H) 9 - 16 mg/dL [facility] Creatinine, Serum 0.84 0.5 - 1.4 mg/dL [facility] Estimated Glomerular Filt Rate >60 [facility] Comment:Chronic Kidney Disea se: Estimated GFR < 60 mL/min/[id number] Kidney Disease: Estimated GFR < 15 mL/min/1.73m2 Glucose 106 60 - 115 mg/dL [facility] Calcium 9.3 8.4 - 10.2 mg/dL [facility] 11/29/2024 4:02 PM EDT 11/29/2024 4:03 PM EDT us Generic External Data Provider LAB BLOOD ORDERAB LES Final Result [facility] [address] [place] [phone] * Hepatitis C Antibody Reflex (01/18/2023 11:37 AM EDT) Hepatitis C Antibody Nonreactive Nonreactive [facility] Comment:Antibodies to HCV no t detected; does not exclude early acuteHCV infection. 01/18/2023 11:3 7 AM EDT 01/18/2023 12:58 PM EDT [facility] External Provider LAB BLO OD ORDERABLES Final Result Performing Organization Address [facility] Number [facility] [address] [place] [phone] * HIV Ab/Ag ([facility]) (01/18/2023 11:37 AM EDT) HIV AB/AG Nonreactive Nonreactive [facility] Comment:HIV-1 p24 Ag and/or HIV-1/HIV-2 Ab not detected.A test result that is nonreactive does not exclude thepossibility of exposure to or infection with HIV-1 and/orHIV-2. Nonreactive results in this assay for individualswith prior exposure to HIV-1 and/or HIV-2 may be due toantigen and antibody levels that are below the limit ofdetection of this assay.[employer] HIV Ag/Ab Combo assay result andsupplemental assay results should be interpreted inconjunction with the patient's clinical presentation,history and other laboratory results. If the results areinconsistent with clinical evidence, additional testing issuggested to confirm the result. 01/18/2023 11:3 7 AM EDT 01/18/2023 12:58 PM EDT Generic External Data Provider LAB BLOOD ORDERAB LES Final Result Performing Organization Address [facility] Co de Phone Number [facility] [address] [place] [phone] * (ABNORMAL) Lipid Panel, Standard (01/18/2023 11:37 AM EDT) Triglycerides 147 <150 mg/dL [facility] Comment:Desirable Triglyceri de: less than 150 mg/dLBorderline High Triglyceride 150-199 mg/dLHigh Triglyceride: 200-499 mg/dLVery High Triglyceride: greater than or equal to 5OO mg/dL Cholesterol 238(H) <200 mg/dL [facility] Comment:Desirable Cholestero l: less than 200 mg/dLBorderline High Cholesterol: 200-239 mg/dLHigh Cholesterol: greater than 239 mg/dL LDL Cholesterol Calculated 162(H) <100 mg/dL [facility] Comment:Desirable LDL: less than 100 mg/dLNear Optimal/Above Optimal LDL: 110- 129 mg/dLBorderline High LDL: 130-159 mg/dLHigh LDL: 160-189 mg/dLVery High LDL: greater than or equal to 190 mg/dL HDL Cholesterol 47 >40 mg/dL [facility] Comment:Desirable HDL: great er than 40 mg/dL Note: This HDL assay may give artificially low results in patients with liver disease. 01/18/2023 11:3 7 AM EDT 01/18/2023 12:58 PM EDT us Generic External Data Provider LAB BLOOD ORDERAB LES Final Result [facility] [address] [place] [phone] * Hm Colonoscopy (04/27/2019 1:42 PM EST) us Historical Provider HEALTH MAINTENANCE Final Result from Last 3 Months or Most Recently Relevant to Health Maintenance Insurance , [address] [place] [address] [facility] Care Teams Vinyl Dipper Relationship Specialty Start Date End Date Radha [place] MD [address] [place] [phone] PCP - General Internal Medicine 11/16/22
== END ==
LOC: HO.CARD 15:13
PROVIDERS: PCP Student in an Organized Health Care Education/Training Program
DX: I42.8 Other cardiomyopathies (principal)
CPT/HCPCS: 93306; Q9957

== ENCOUNTER → 2025-02-05 15:17 | Outpatient (BNV) | payer OTHER, SELFPAY | PROVIDERS: PCP Student in an Organized Health Care Education/Training Program; Visit Provider Internal Medicine | DX: I42.2 Other hypertrophic cardiomyopathy (principal); I51.89 Other ill-defined heart diseases | CPT/HCPCS: 93306 ==